=== PATIENT | female | born 1960 | race Caucasian/White ===

== ENCOUNTER → 2019-11-08 11:48 | Outpatient (CLI) | payer BC, SELFPAY ==
--- NOTE | ~2019-11-08 | US_ITS ---
EXAMINATION: US soft tissue head and neck EXAM DATE: 11/08/2019 12:22 INDICATION: Palpable abnormalities. TECHNIQUE: Multiple grayscale and Doppler images of the neck soft tissues were obtained (by a technol ogist who performed the scan) and subsequently reviewed. Correlation is made to thyroid ultrasound . FINDINGS: Scanning in the reported palpable abnormalities demonstrated symmetric homogeneous echogenicity subma ndibular glands bilaterally. There are multiple scattered internal jugular chain lymph nodes which ar e within normal size limits and have normal expected fatty rudy. Thyroid gland is also evaluated, has mildly heterogeneous echogenicity, right lobe measuring 5.4 x 1. 6 x 1.8 cm and the left 5.3 x 1.7 x 2.0 cm, mildly enlarged. There is a left thyroid lobe superficial nodule again identified, measuring 1.0 x 0.5 x 0.7 cm, unchanged. IMPRESSION: 1. Normal submandibular glands and normal sized internal jugular chain lymph nodes. 2. Mild thyromegaly. Stable left thyroid lobe nodule. Reviewed, dictated and finalized at location A. IMPRESSION: 1. Normal submandibular glands and normal sized internal jugular chain lymph n odes. 2. Mild thyromegaly. Stable left thyroid lobe nodule.
== END ==
PROVIDERS: PCP Family Medicine; Visit Provider Internal Medicine Endocrinology, Diabetes & Metabolism
DX: R59.0 Localized enlarged lymph nodes (principal)
CPT/HCPCS: 76536

== ENCOUNTER → 2019-11-11 10:56 | Outpatient (CLI) | payer BC, SELFPAY ==
--- NOTE | ~2019-11-11 | MR_ITS ---
EXAMINATION: MR brain/brain stem wo con DATE: 11/11/2019 11:40 INDICATION: Headache. TECHNIQUE: Magnetic resonance imaging (MRI) of the brain and brainstem was performed without intraven ous contrast. Sequences included sagittal and axial T1-weighted FSE, axial diffusion-weighted FS EPI, axial T2*-weighted GRE, axial T2-weighted FLAIR Propeller, and axial T2-weighted Propeller. Apparent diffusion coefficient (ADC) maps were created. COMPARISON: None. FINDINGS: There are scattered areas of nonspecific increased T2-weighted signal intensity in the cere bral white matter, which is within normal limits for the patient's age. There is no intracranial hemo rrhage, acute infarction, or abnormal intracranial mass lesion. The ventricles are normal in size. Th e orbits are normal. There is a mucous retention cyst in left maxillary sinus. The mastoid air cells are normal. IMPRESSION: 1. Normal aging brain. Reviewed, dictated and finalized at location A. IMPRESSION: 1. Normal aging brain.
== END ==
PROVIDERS: PCP Family Medicine; Visit Provider Internal Medicine Endocrinology, Diabetes & Metabolism
DX: R59.0 Localized enlarged lymph nodes (principal); R51 Headache
CPT/HCPCS: 70551

== ENCOUNTER → 2020-03-21 14:18 | Outpatient (CLI) | payer BC, SELFPAY ==
--- NOTE | ~2020-03-21 | XR_ITS ---
EXAMINATION: XR knee RT min 4V DATE: 03/21/2020 15:10 INDICATION: Right knee osteoarthritis. TECHNIQUE: 4 views of right knee were obtained. COMPARISON: Right knee radiographs 02/11/2016 FINDINGS: There is lateral subluxation of patella. No acute fracture. There is mild osteoarthritis of medial and lateral compartments and moderate osteoarthritis of patellofemoral compartment. There is chondrocalcinosis of the menisci. No knee joint effusion. IMPRESSION: 1. Moderate right knee osteoarthritis. Reviewed, dictated and finalized at location A. R SCHOOL PROGRAM COORDINATOR
--- NOTE | ~2020-03-21 | XR_ITS ---
EXAMINATION: HAND-CHIOMA ARTHRITIS 3+VIEWS DATE: 03/21/2020 15:10 INDICATION: Osteoarthritis with chronic anterior proximal hand pain and swelling TECHNIQUE: Posteroanterior, lateral, and oblique views of the left and of the right hands as well as a ballcatchers view of both hands were obtained. COMPARISON: Left hand radiographs dated 06/06/2018 FINDINGS: Bone alignment is normal at both hands. No fracture. Subtle chondrocalcinosis at the triangular fibro cartilage on both the left and right. Joint spaces are relatively preserved throughout both hands wit h no evident osteophytosis or erosions to suggest an inflammatory arthritis. IMPRESSION: 1. Chondrocalcinosis at the triangular fibrocartilage complex at both wrists. Otherwise unremarkable bilateral hand radiographs. Reviewed, dictated and finalized at location B. DEPARTMENT SUPERVISOR IMPRESSION: 1. Chondrocalcinosis at the triangular fibrocartilage complex at both wrists. O therwise unremarkable bilateral hand radiographs.
--- NOTE | ~2020-03-21 | XR_ITS ---
EXAMINATION: XR hip BI 2V w AP pelvis DATE: 03/21/2020 15:10 INDICATION: Osteoarthritis with pain extending across the lower back. TECHNIQUE: Anteroposterior view of the pelvis and anteroposterior and frog-leg lateral views of the l eft hip and anteroposterior and frog-leg lateral views of the right hip and were obtained. COMPARISON: CT dated 12/08/2017 FINDINGS: Bone alignment is normal. No fracture or suspected avascular necrosis. Mild bilateral hip osteoarthri tis. There is also mild bilateral sacroiliac osteoarthritis. Transitional S1 segment which is lumbari zed on the left. Surgical clip at the medial right lower quadrant which on prior CT appears to corres pond to change of a prior right nephrectomy. Osteitis pubis. IMPRESSION: 1. Osteitis pubis and mild bilateral hip and sacroiliac osteoarthritis. Reviewed, dictated and finalized at location B. CHECKER
--- NOTE | ~2020-03-21 | XR_ITS ---
EXAMINATION: XR knee LT min 4V DATE: 03/21/2020 15:10 INDICATION: Left knee osteoarthritis. TECHNIQUE: 4 views of left knee were obtained. COMPARISON: Left knee radiographs 09/23/2011 FINDINGS: There is lateral subluxation of patella. No fracture. There is mild osteoarthritis of media l and lateral compartments and moderate osteoarthritis of patellofemoral compartment. There is chondr ocalcinosis of the menisci. No knee joint effusion. IMPRESSION: 1. Moderate left knee osteoarthritis. Reviewed, dictated and finalized at location A. NG MACHINE REPAIRER
--- NOTE | ~2020-03-21 | XR_ITS ---
XR lumbar spine min 4V DATE: 03/21/2020 15:10 INDICATION: Back pain. TECHNIQUE: AP, lateral, coned lateral lumbosacral and bilateral oblique views COMPARISON: 10/02/2014 lumbar spine FINDINGS: Surgical clips are again noted overlying the right mid abdomen. There is diffuse osteopenia. There is a transitional first sacral vertebra with lumbarization on the right, sacralization on the r ight. Lumbar interspaces appear relatively preserved. There is mild degenerative spurring of the mid and lo wer lumbar spine. There is degenerative spurring of the lower thoracic spine. No fracture or bone destruction is evident. The included lower thoracic and lumbar pedicles are intac t. No spondylolysis. There is minimal retrolisthesis at L5-S1. The sacroiliac joints are unremarkable. IMPRESSION: Transitional lumbosacral vertebra Mild degenerative change of the lower thoracic and lumbar spine Diffuse osteopenia Reviewed, dictated and finalized at location A. AIN AIRLINE PILOT
== END ==
PROVIDERS: PCP Family Medicine; Visit Provider Internal Medicine
DX: M85.30 Osteitis condensans, unspecified site (principal); M16.0 Bilateral primary osteoarthritis of hip; M47.898 Other spondylosis, sacral and sacrococcygeal region; M47.817 Spondylosis without myelopathy or radiculopathy, lumbosacral region; M47.815 Spondylosis without myelopathy or radiculopathy, thoracolumbar region; M11.232 Other chondrocalcinosis, left wrist; M11.231 Other chondrocalcinosis, right wrist; M17.0 Bilateral primary osteoarthritis of knee; S83.001A Unspecified subluxation of right patella, initial encounter; S83.002A Unspecified subluxation of left patella, initial encounter
CPT/HCPCS: 72110; 73130; 73521; 73564

== ENCOUNTER → 2020-06-06 13:00 | Outpatient (CLI) | payer BC, SELFPAY ==
--- NOTE | ~2020-06-06 | MM_ITS ---
EXAMINATION: MM screening nik BI w kellie HISTORY: Screening TECHNIQUE: Craniocaudal and mediolateral oblique 3-D tomosynthesis images were obtained and synthetic 2-D images were generated. CAD analysis was submitted and interpreted. COMPARISON: Comparison to multiple prior studies sequentially, with oldest reviewed study dated 07/04. BREAST PARENCHYMAL COMPOSITION: The breasts are heterogenously dense, which may obscure small masses. FINDINGS: There is a developing mass in the subareolar location of the right breast on MLO view. Ther e is developing asymmetry in the upper outer quadrant of the left breast adjacent to a biopsy marker. IMPRESSION: 1. Developing bilateral breast abnormalities. 2. Additional mammographic views and possible breast ultrasound are recommended. BI-RADS Category 0: Incomplete: Needs additional imaging evaluation. Reviewed, dictated and finalized at location A. IMPRESSION: 1. Developing bilateral breast abnormalities. 2. Additional mammographic views and possible breast ultrasound are recommended . BI-RADS Category 0: Incomplete: Needs additional imaging evaluation.
== END ==
PROVIDERS: PCP Family Medicine; Visit Provider Family Medicine
DX: Z12.31 Encounter for screening mammogram for malignant neoplasm of breast (principal); R92.8 Other abnormal and inconclusive findings on diagnostic imaging of breast
CPT/HCPCS: 77063; 77067

== ENCOUNTER → 2020-07-05 14:00 | Outpatient (CLI) | payer BC, SELFPAY ==
--- NOTE | ~2020-07-05 | MMUS_ITS ---
EXAMINATION: MM diagnostic mammo BI, US breast BI limited HISTORY: Possible breast masses on screening mammogram TECHNIQUE: Additional 3-D tomosynthesis images of the breasts were performed and synthetic 2-D images were generated. CAD analysis was submitted and interpreted. High resolution limited bilateral breast ultrasound was performed. COMPARISON: 06/06/2020, 03/15/2018, 03/01/2018 FINDINGS: MAMMOGRAPHIC FINDINGS: Left breast: There is an approximately 2.5 cm obscured low density mass in the middle third of the ce ntral breast at the 12:00 location. No suspicious calcification or architectural distortion are ident ified. Right breast: There is a 10 mm obscured low density mass at the 12:00 location 3 cm from the nipple. Immediately posterior to this is a 6 mm oval, obscured, equal density mass 4 cm from the nipple. ULTRASOUND: Left breast: There are cysts at the 12:00 location corresponding to the mammographic finding in quest ion. Right breast: There is a 4 mm oval, circumscribed, parallel, hypoechoic mass at the 12:00 location 5 cm from the nipple. An adjacent cyst with internal septation is seen at the 12:00 location 3 cm from the nipple. IMPRESSION: 1. Simple cysts of the left breast and probably benign right breast mass. 2. Recommend 6 month follow-up right diagnostic mammogram and ultrasound. BI-RADS category 3, probably benign findings. Reviewed, dictated and finalized at location A. IMPRESSION: 1. Simple cysts of the left breast and probably benign right breast mass. 2. Recommend 6 month follow-up right diagnostic mammogram and ultrasound. BI-RADS category 3, probably benign findings.
== END ==
PROVIDERS: PCP Family Medicine; Visit Provider Family Medicine
DX: R92.8 Other abnormal and inconclusive findings on diagnostic imaging of breast (principal)
CPT/HCPCS: 76642; 77066

== ENCOUNTER → 2020-09-12 12:55 | Outpatient (CLI) | payer BC, SELFPAY ==
--- NOTE | ~2020-09-12 | US_ITS ---
EXAMINATION: US renal BI EXAM DATE: 09/12/2020 13:13 INDICATION: Left flank pain. TECHNIQUE: Multiple grayscale and Doppler images of the kidneys were obtained (by a technologist who performed the scan) and subsequently reviewed. There is no prior study for comparison. FINDINGS: Right kidney: Surgically resected. Unremarkable renal fossa. Left kidney: There is normal contour and echogenicity. It measures 12.8 x 4.8 x 5.2 centimeters. Th ere are no focal renal lesions identified. There is no hydronephrosis. Bladder is collapsed and not well evaluated. IMPRESSION: 1. Unremarkable left kidney. Reviewed, dictated and finalized at location A.
== END ==
PROVIDERS: Visit Provider Internal Medicine Endocrinology, Diabetes & Metabolism
DX: R10.9 Unspecified abdominal pain (principal)
CPT/HCPCS: 76775

== ENCOUNTER → 2021-03-21 08:42 | Outpatient (CLI) | payer BC, SELFPAY ==
--- NOTE | ~2021-03-21 | MMUS_ITS ---
EXAMINATION: MM diagnostic nik BI w kellie, US breast RT limited HISTORY: Follow-up for probably benign right breast mass TECHNIQUE: Craniocaudal, mediolateral, and mediolateral oblique 3-D tomosynthesis images of the breas ts were performed and synthetic 2-D images were generated. CAD analysis was submitted and interpreted . High resolution limited right breast ultrasound was performed. COMPARISON: 07/05/2020, 06/06/2020, 03/01/2018 BREAST PARENCHYMAL COMPOSITION: The breasts are heterogeneously dense, which may obscure small masses . FINDINGS: MAMMOGRAPHIC FINDINGS: Left breast: There is a stable obscured low density mass in the middle third of the breast. No new ma ss, suspicious calcification, or architectural distortion are identified. Right breast: There are two stable adjacent, obscured low density oval masses at the 12:00 location b reast 3 cm from the nipple which measure 7 mm an 11 mm. There has been no suspicious interval change. No new mass, suspicious calcification, or architectural distortion are identified. ULTRASOUND: A 4 mm mass previously described at the 12:00 location 5 cm from the nipple measures 7 mm but now has an appearance consistent with a cyst. A 10 mm cyst is noted at the 12:00 location 2.5 cm from the ni pple. Two adjacent cysts measuring up to 6 mm are present at the 12:00 location 3 cm from the nipple. IMPRESSION: 1. No mammographic or sonographic evidence of malignancy. 2. Recommend routine screening mammography in one year. BI-RADS Category 2: Benign finding(s). Reviewed, dictated and finalized at location A. BODIED TANKERMAN IMPRESSION: 1. No mammographic or sonographic evidence of malignancy. 2. Recommend routine screening mammography in one year. BI-RADS Category 2: Benign finding(s).
== END ==
PROVIDERS: PCP Family Medicine; Visit Provider Physician Assistant
DX: R92.8 Other abnormal and inconclusive findings on diagnostic imaging of breast (principal)
CPT/HCPCS: 76642; 77062; 77066; G0279

== ENCOUNTER → 2021-06-20 13:31 | Outpatient (CLI) | payer BC, SELFPAY ==
--- NOTE | ~2021-06-20 | US_ITS ---
US renal BI DATE: 06/20/2021 14:07 INDICATION: Elevated serum creatinine. History of right nephrectomy for congenital defect TECHNIQUE: Real-time imaging of left kidney, urinary bladder COMPARISON: 09/12/2020 renal ultrasound examination 12/08/[address] abdomen pelvis FINDINGS: No significant abnormality is detected in the right renal fossa. Left kidney measures 12.4 cm length. No left renal mass lesion or hydronephrosis. The urinary bladder is unremarkable. IMPRESSION: Status post right nephrectomy Unremarkable left kidney Reviewed, dictated and finalized at Location A. Reviewed, dictated and finalized at location A.
== END ==
PROVIDERS: PCP Family Medicine; Visit Provider Physician Assistant
DX: R79.89 Other specified abnormal findings of blood chemistry (principal); Z90.5 Acquired absence of kidney
CPT/HCPCS: 76775

== ENCOUNTER 2021-07-19 15:23 | Emergency (ER) | payer BC, SELFPAY ==
--- NOTE | ~2021-07-19 | XR_ITS ---
XR foot RT 2V 07/19/2021 16:14 Indication: Right foot pain Procedure: 2 views right foot Comparison: 01/11/2018 Findings: Osteopenia. Mild hallux valgus. Small degenerative calcaneal enthesophytes. Lisfranc joint intact. No acute fracture or traumatic malalignment. Mild soft tissue swelling overlying the metatars als. No foreign bodies. Impression: 1: No acute bone or joint abnormality. Reviewed, dictated and finalized at location A. Impression: 1: No acute bone or joint abnormality.
[2021-07-19 15:26] VITALS: BP 167/72; PULSE 80; RESP 100; TEMP 36.4; O2SAT 100
[2021-07-19 15:38] VITALS: BP 135/116; PULSE 79; RESP 22; O2SAT 98
[2021-07-19] MEDS: predniSONE 20 MG TABLET 40 MG PO (16:10)
[2021-07-19] MEDS: ACETAMINOPHEN 325 MG TABLET 650 MG PO (16:11)
[2021-07-19 16:25] VITALS: BP 134/92; PULSE 78; RESP 16; O2SAT 98
[2021-07-19 17:41] VITALS: BP 138/76; PULSE 77; RESP 18; O2SAT 98
[2021-07-19 17:50] LABS: Anion Gap 6 mmol/L (8-16); Blood Urea Nitrogen 15 mg/dL (7-17); Calcium 8.7 mg/dL (8.4-10.2); Carbon Dioxide 28 mmol/L (22-30); Chloride 107 mmol/L (98-107); Estimated Glomerular Filt Rate 42; Glucose 107 mg/dL (65-110); Sodium 141 mmol/L (137-145)
[2021-07-19] MEDS: KETOROLAC 30 MG/ML VIAL (*BKC) IM (18:29)
--- NOTE | 2021-07-19 18:35 | ED.EXTPRO ---
HPI - Extremity Problem General Chief complaint: Extremity Problem,Nontraumatic <RAY Camarena Last Filed: 07/19/21 20:29> Stated complaint: right foot pain <Maribell Charles PA-C - Last Filed: 07/19/21 20:29> Time Seen by Provider: 07/19/21 15:34 <RAY Camarena Last Filed: 07/19/21 20:29> History of Present Illness HPI Narrative: Patient is a 61-year-old female with a history of Christian's thyroiditis, arthritis, CKD, here for evaluation of atraumatic right foot pain x 2 days. Patient states that her pain developed while she was at rest, and since then has been severe in nature. Reports pain exacerbation with touching of the bed sheets and with ambulation. Denies relief after Excedrin Migraine. Patient reports some redness and swelling to her right foot. Denies fevers, chills, nausea, vomiting or other systemic symptoms. Denies break in skin or history of diabetes. Reports a similar sensation in her left foot about 2 years ago that resolved without intervention. States that she commonly receives IM Toradol for various arthralgias with good relief of her symptoms, and her history of CKD she is advised to drink lots of fluids afterwards. <RAY Camarena Last Filed: 07/19/21 20:29> Related Data Home medications: Home Medications Medication Instructions Recorded Confirmed triamcinolone acetonide 0.1 % 1 applic topical BID 03/01/20 06/11/21 topical cream propranolol 60 mg capsule,24 60 mg PO DAILY 09/27/20 06/11/21 hr,extended release methimazole 5 mg tablet 5 mg PO 2XW 11/12/20 06/11/21 cholecalciferol (vitamin D3) 1,250 1,250 mcg PO WEEKLY 06/11/21 06/11/21 mcg (50,000 unit) capsule mecobalamin (vitamin B12) 10,000 mcg subcut .once weekly 06/11/21 06/11/21 mcg solution for injection <RAY Camarena Last Filed: 07/19/21 20:29> Allergies/Adverse reactions: Allergies Allergy/AdvReac Type Severity Reaction Status Date / Time amoxicillin Allergy Unknown Rash Verified 06/11/21 08:38 azithromycin Allergy Unknown rash Verified 06/11/21 08:38 bupropion AdvReac Severe choking Verified 06/11/21 08:38 <Maribell Charles PA-C - Last Filed: 07/19/21 20:29> Review of Systems Review of Systems: Gen.: Denies fevers or chills Eyes: Denies eye pain or visual change ENT: Denies congestion Respiratory: Denies shortness of breath or cough CV: Denies chest pain or palpitations GI: Denies abdominal pain nausea, emesis or diarrhea denies burning, urgency, frequency or hematuria Musculoskeletal: Reports right foot pain. Neuro: Denies numbness, tingling, weakness or focal weakness Skin: Denies rash Except as documented, all other systems reviewed and negative <Maribell Charles PA-C - Last Filed: 07/19/21 20:29> [facility] Past Medical History Medical History: Medical History Autoimmune thyroiditis CKD (chronic kidney disease) Congenital hypoplasia of right kidney Graves disease Christian's disease HLD (hyperlipidemia) Hypothyroidism IBS (irritable bowel syndrome) Inflammatory arthritis Vitamin B12 deficiency Vitamin D deficiency <Maribell Charles PA-C - Last Filed: 07/19/21 20:29> Surgical History Surgical History: Surgical History H/O: hysterectomy History of nephrectomy <Maribell Charles PA-C - Last Filed: 07/19/21 20:29> Family History Family History: Family History Mother Diverticulitis Carcinoma of colon Other Cerebrovascular accident Diabetes mellitus Family history of arthritis Family history of heart disease in male family member before age 55 Family history of malignant neoplasm Family history of malignant neoplasm of breast in first degree relative Family history of malignant
[2021-07-19 18:56] VITALS: BP 142/78; PULSE 78; RESP 18; O2SAT 98
== END 2021-07-19 18:57 | disposition home or self-care (01) ==
PROVIDERS: Physician Assistant; Emergency Provider Emergency Medicine; PCP Family Medicine
DX: M10.9 Gout, unspecified (principal); N18.9 Chronic kidney disease, unspecified; E06.3 Autoimmune thyroiditis; E05.00 Thyrotoxicosis with diffuse goiter without thyrotoxic crisis or storm; K58.9 Irritable bowel syndrome, unspecified; E53.8 Deficiency of other specified B group vitamins; E55.9 Vitamin D deficiency, unspecified; Q60.3 Renal hypoplasia, unilateral; Z90.5 Acquired absence of kidney; Z87.891 Personal history of nicotine dependence
CPT/HCPCS: 36415; 73620; 80048; 96372; 99283; A9270; J1885; J7512

== ENCOUNTER 2021-08-06 16:27 | Emergency (ER) | payer BC, SELFPAY ==
[2021-08-06 16:43] VITALS: BP 152/76; PULSE 73; RESP 16; TEMP 36.7; O2SAT 98
--- NOTE | 2021-08-06 16:59 | ED.URI ---
HPI - URI/Sore Throat General Chief Complaint: Upper Respiratory Infection Stated Complaint: sore throat Time Seen by Provider: 08/06/21 16:59 Source: patient Mode of arrival: ambulatory Limitations: no limitations History of Present Illness HPI Narrative: 61-year-old female presented with known exposure to COVID. Patient endorses a mild sore throat that causes occasional cough, and runny nose. She states her friend who is in from out of town has been staying with her for the last 3 days, tested positive for COVID today. She denies shortness of breath, wheezing, nausea, vomiting, fevers or chills. She was boosted with [employer]quis [employer]quis vaccine in May 2021. Related Data Home Medications Medication Instructions Recorded Confirmed methimazole 5 mg tablet 5 mg PO 2XW 11/12/20 08/06/21 cholecalciferol (vitamin D3) 1,250 1,250 mcg PO WEEKLY 06/11/21 08/06/21 mcg (50,000 unit) capsule mecobalamin (vitamin B12) 10,000 10,000 mcg subcut .once weekly 06/11/21 08/06/21 mcg solution for injection propranolol 60 mg capsule,24 60 mg PO .every other day 07/31/21 08/06/21 hr,extended release insulin syringe-needle U-100 1 mL 08/06/21 08/06/21 31 gauge x 5/16 (BD Insulin Syringe Ultra-Fine) Allergies Allergy/AdvReac Type Severity Reaction Status Date / Time amoxicillin Allergy Unknown Rash Verified 08/06/21 16:35 azithromycin Allergy Unknown rash Verified 08/06/21 16:35 bupropion AdvReac Severe choking Verified 08/06/21 16:35 Review of Systems Review of Systems: CONSTITUTIONAL: Denies body aches, fever, chills, or sweats. EYES: Denies visual changes, redness, or discharge. ENT: reports rhinorrhea, congestion, sore throat CARDIOVASCULAR: Denies chest pain, palpitations, or edema. RESPIRATORY: Denies cough or dyspnea. GASTROINTESTINAL: Denies abdominal pain, nausea, vomiting, or diarrhea. MUSCULOSKELETAL: Denies back pain, joint pain, or myalgia. NEUROLOGIC: Denies headache, numbness, tingling, or weakness. All systems reviewed & are unremarkable except as noted in HPI and below PMFSH Past Medical History Medical History Autoimmune thyroiditis CKD (chronic kidney disease) Congenital hypoplasia of right kidney Graves disease Christian's disease HLD (hyperlipidemia) Hypothyroidism IBS (irritable bowel syndrome) Inflammatory arthritis Toe pain, right Vitamin B12 deficiency Vitamin D deficiency Surgical History Surgical History H/O: hysterectomy History of nephrectomy Family History Family History Mother Diverticulitis Carcinoma of colon Other Cerebrovascular accident Diabetes mellitus Family history of arthritis Family history of heart disease in male family member before age 55 Family history of malignant neoplasm Family history of malignant neoplasm of breast in first degree relative Family history of malignant neoplasm of uterus Social History Social History Second hand tobacco smoke exposure: No Smoking end date: 02/23/12 Alcohol intake: never Substance use: never Substance use type: does not use Gender identity (if verbalized by the patient): Female Comments At time of signature, I have reviewed and agree with nursing past medical, surgical, social and family history unless otherwise noted. Please see nursing chart for further information. There is no relevant family history pertinent to the presenting complaint Exam Narrative: GENERAL: Well-appearing EYES: EOMI. No redness or drainage. Conjunctivae normal. ENT: Mucous membranes pink and moist. No rhinorrhea. TMs normal bilaterally. Throat normal. Uvula midline. NECK: Normal AROM. Supple. No lymphadenopathy. CHEST: No respiratory distress. Clear to auscultation. HEART: Regular rate and r
== END 2021-08-06 17:18 | disposition home or self-care (01) ==
PROVIDERS: Emergency Provider Nurse Practitioner Family; PCP Family Medicine
DX: Z20.822 Contact with and (suspected) exposure to COVID-19 (principal); Z87.891 Personal history of nicotine dependence; E78.5 Hyperlipidemia, unspecified; M06.9 Rheumatoid arthritis, unspecified; E06.3 Autoimmune thyroiditis; Q60.3 Renal hypoplasia, unilateral; E05.00 Thyrotoxicosis with diffuse goiter without thyrotoxic crisis or storm; Z90.5 Acquired absence of kidney; E53.8 Deficiency of other specified B group vitamins; E55.9 Vitamin D deficiency, unspecified
CPT/HCPCS: 87426; 99213; C9803; G0463

== ENCOUNTER → 2022-01-27 16:00 | Outpatient (CLI) | payer BC, SELFPAY ==
--- NOTE | ~2022-01-27 | DEXA_ITS ---
Bone Density Report Name: STEVEN PIZARRO Age: 61 Sex: Female Ethnicity: White Date of : 1960 Indication: osteopenia; height loss; hysterectomy; postmenopausal Referring Provider: YODIT BRITTON Study: Bone densitometry was performed. Exam Date: January 27, 2022 Accession number: [id number] Bone Density: Region BMD T-score Z-score Classification AP Spine (L1-L4) 0.931 -1.1 0.4 Osteopenia Femoral Neck (Left) 0.833 -0.1 1.2 Normal Total Hip (Left) 0.933 -0.1 0.9 Normal Femoral Neck (Right) 0.801 -0.4 0.9 Normal Total Hip (Right) 0.865 -0.6 0.3 Normal Total Hip Mean 0.899 -0.4 0.6 Normal World Health Organization criteria for BMD impression classify patients as: Normal (T-score at or above -1.0), Osteopenia (T-score between -1.0 and -2.5), or Osteoporosis (T-score at or below -2.5). 10-year Fracture Risk(1): Major Osteoporotic Fracture 5.7% Hip Fracture 0.2% Reported Risk Factors: [place] (), Neck BMD=0.801, BMI=44.1 Input outside FRAX(R) limits. Adjusted to:Eytmny=999 kg (1) FRAX(R) Version 3.08. Fracture probability calculated for an untreated patient. Fracture probability may be lower if the patient has received treatment. Previous Exams: Region Exam Age BMD T-score BMD Change BMD Change Date g/cm2 vs Baseline vs Previous AP Spine(L1-L4) 01/27/2022 61 0.931 -1.1 0.025* 0.025* 02/06/2009 48 0.906 -1.3 Total Hip(Left) 01/27/2022 61 0.933 -0.1 -0.046* -0.046* 02/06/2009 48 0.979 0.3 Total Hip(Right) 01/27/2022 61 0.865 -0.6 -0.061* -0.061* 02/06/2009 48 0.926 -0.1 *Denotes significance at 95% confidence level, LSC for AP Spine = 0.022 g/cm2, LSC for Total Hip = 0.027 g/cm2 Clinical Information Provided by Patient: Has used the following medications: Vitamin D, Propanal Has the following medical conditions: Hysterectomy Patient maximum height was 68.0 Menopause Age: 26 No regular weight bearing exercise Onset of menses at age 13 Number of children 2 Impression: The patient has low bone mass, based on the Total Spine T-score. The patient has an estimated ten-year risk of hip fracture of 0.2% and an estimated ten-year risk of major fracture of 5.7%, based on the WHO FRAX algorithm. The BMD for the Total Hip(Left) decreased, changing by -0.046 since the last DXA exam. The BMD for the Total Hip(Right) decreased, changing by -0.061 since the last DXA exam.
== END ==
PROVIDERS: PCP Family Medicine; Visit Provider Family Medicine
DX: Z78.0 Asymptomatic menopausal state (principal); M85.88 Other specified disorders of bone density and structure, other site
CPT/HCPCS: 77080

== ENCOUNTER 2022-08-17 18:36 | Emergency (ER) | payer BC, SELFPAY ==
--- NOTE | ~2022-08-17 | XR_ITS ---
EXAM: XR foot LT min 3V DATE: 08/17/2022 19:34 HISTORY: Great toe pain. suspect gout . COMPARISON: None available. FINDINGS: Normal mineralization. No fracture or dislocation. No lytic or blastic lesion. Scattered m ild degenerative change. Moderate plantar enthesopathy. No erosion or periosteal change. Mild forefoo t soft tissue swelling. IMPRESSION: No acute osseous finding in the left foot. Reviewed, dictated and finalized at location K.
[2022-08-17 18:37] VITALS: BP 135/75; PULSE 88; RESP 18; TEMP 36.6; O2SAT 100
--- NOTE | 2022-08-17 19:47 | ED.GENADULT ---
HPI - General Adult General Chief complaint: Extremity Problem,Nontraumatic Stated complaint: gout to L big toe? Time Seen by Provider: 08/17/22 19:01 History of Present Illness HPI narrative: This is a 62-year-old female presenting with left great toe pain. Patient has a history of gout she has not had a recurrence in several years. Pain started this morning at 10:00 a.m.. There are no traumatic events. It is not red. She does not have fever chills nausea vomiting or diarrhea. Patient has no other complaints. She has not taken anything for pain control. She has 1 kidney and poor kidney function. Related Data Home Medications Medication Instructions Recorded Confirmed methimazole 5 mg tablet 5 mg PO 2XW 11/12/20 12/17/21 cholecalciferol (vitamin D3) 1,250 1,250 mcg PO WEEKLY 06/11/21 12/17/21 mcg (50,000 unit) capsule mecobalamin (vitamin B12) 10,000 10,000 mcg subcut .once weekly 06/11/21 12/17/21 mcg solution for injection propranolol 60 mg capsule,24 60 mg PO .every other day 07/31/21 12/17/21 hr,extended release insulin syringe-needle U-100 1 mL 08/06/21 12/17/21 31 gauge x 5/16 (BD Insulin Syringe Ultra-Fine) Allergies Allergy/AdvReac Type Severity Reaction Status Date / Time amoxicillin Allergy Unknown Rash Verified 08/17/22 18:51 bupropion AdvReac Severe choking Verified 08/17/22 18:51 PMFSH Past Medical History Medical History Autoimmune thyroiditis CKD (chronic kidney disease) Congenital hypoplasia of right kidney Gout attack Graves disease Christian's disease HLD (hyperlipidemia) Hypothyroidism IBS (irritable bowel syndrome) Inflammatory arthritis Toe pain, right Vitamin B12 deficiency Vitamin D deficiency Surgical History Surgical History H/O: hysterectomy History of nephrectomy Family History Family History Mother Diverticulitis Carcinoma of colon Other Cerebrovascular accident Diabetes mellitus Family history of arthritis Family history of heart disease in male family member before age 55 Family history of malignant neoplasm Family history of malignant neoplasm of breast in first degree relative Family history of malignant neoplasm of uterus Social History Social History Smoking status: Never smoker Second hand tobacco smoke exposure: No Smoking end date: 02/23/12 Alcohol intake: never Substance use: never Substance use type: does not use Lack of Transportation: No Lack of Food: Never True Current Housing: I Have Housing Concerned About Future Housing: Decline to Answer Difficulty Paying Gas/Electric Bills: Decline to Answer Difficulty Paying for Meds: Decline to Answer Currently Unemployed: Decline to Answer Education: Decline to Answer Difficulty w/ Childcare or Family Care: Decline to Answer Gender identity (if verbalized by the patient): Female Exam Narrative: APPEARANCE: No apparent distress. Head: atraumatic. EYES: EOMI, NOSE: Atraumatic NECK: Trachea midline RESPIRATORY: No increased rate of breathing CARDIOVASCULAR: RRR, ABDOMINAL: Non-distended MUSCULOSKELETAl: Focal exam of the left foot revealed tenderness to palpation along the great toe and at the toe. No significant erythema or warmth. NEURO: Alert. Moving 4/4 extremities SKIN:: Warm, dry. Normal color PSYCHIATRIC: Normal affect Course Vital Signs Vital signs: Vital Signs Temperature 97.8 F 08/17/22 18:37 Pulse Rate 88 08/17/22 18:37 Respiratory Rate 18 08/17/22 18:37 Blood Pressure 135/75 08/17/22 18:37 Pulse Oximetry 100 08/17/22 18:37 Oxygen Delivery Room Air 08/17/22 18:37 Temperature 97.8 F 08/17/22 18:37 Pulse Rate 88 08/17/22 18:37 Respiratory Rate 18 08/17/22 18:37 Blood Pressur
[2022-08-17] MEDS: predniSONE 40 MG, predniSONE 10 MG 50 MG PO (19:52)
[2022-08-17] MEDS: HYDROcodone/acetaminophen (*CRX) 5-325 MG TABLET 2 TAB PO (19:53)
== END 2022-08-17 20:12 | disposition home or self-care (01) ==
PROVIDERS: Emergency Provider Emergency Medicine; PCP Family Medicine
DX: M79.675 Pain in left toe(s) (principal); N18.9 Chronic kidney disease, unspecified; E03.9 Hypothyroidism, unspecified; E78.5 Hyperlipidemia, unspecified; Z79.4 Long term (current) use of insulin
CPT/HCPCS: 73630; 99283; A9270; J7512

== ENCOUNTER → 2023-01-18 09:17 | Outpatient (CLI) | payer BC, SELFPAY ==
--- NOTE | ~2023-01-18 | MMUS_ITS ---
EXAMINATION: MM diagnostic nik BI w kellie, US breast BI complete HISTORY: Left breast lump TECHNIQUE: ML, MLO and CC full field and spot 3-D tomosynthesis images of both breasts were performed and synthetic 2-D images were generated. CAD analysis was submitted and interpreted. High resolution complete bilateral breast ultrasound examination including all 4 quadrants and subareolar areas was performed. COMPARISON: 03/21/2021 diagnostic bilateral mammogram and limited right breast ultrasound 07/05/2020 bilateral diagnostic mammogram and Limited bilateral breast ultrasound 06/06/2020 bilateral screening mammogram BREAST PARENCHYMAL COMPOSITION: The breasts are heterogeneously dense, which may obscure small masses . FINDINGS: MAMMOGRAPHIC FINDINGS: 2 biopsy markers are noted on the left; history of 2 prior benign left breast biopsies. There bilateral circumscribed breast masses, measuring up to approximately 4 cm on the left, 12 mm on the right (lower inner quadrant). No architectural distortion is noted. Normal bilateral benign calcification. No skin thickening or re traction is noted. ULTRASOUND: No suspicious solid lesion or shadowing of either breast is detected. Right breast: 12:00 subareolar: 1.2 x 7 x 10 mm circumscribed sonolucency with through transmission posterior enhan cement, no internal vascularity, compatible with simple cyst Left breast: There are 2 cysts at 12:00 6 cm from the nipple, measuring up to 1.5 x 3.1 x 2.4 cm and 3.3 x 1.6 x 3 .3 cm. These are sonolucent, with through transmission posterior enhancement, 11:00 7 cm from nipple: 9 x 19 x 17 mm simple cyst with through transmission posterior enhancement an d 8 x 20 x 17 mm cyst 10-11:00 6 cm from nipple: Complex mixed solid and mostly cystic septated mass measuring 7.7 x 16 x 9 mm, with through transmission posterior enhancement, with through transmission and posterior enhance ment, no internal vascularity, consistent with simple cyst. 8:00 6 cm from nipple: Parallel circumscribed sonolucency measuring 7.7 x 17.5 x 20 mm, sonolucent, w ith through transmission, no internal vascularity, compatible with simple cyst IMPRESSION: 1. Benign findings 2. Routine annual mammographic screening is recommended BI-RADS Category 2: Benign finding(s). Reviewed, dictated and finalized at location A. E TOOLSETTER IMPRESSION: 1. Benign findings 2. Routine annual mammographic screening is recommended BI-RADS Category 2: Benign finding(s).
== END ==
PROVIDERS: PCP Family Medicine; Visit Provider Family Medicine
DX: R92.8 Other abnormal and inconclusive findings on diagnostic imaging of breast (principal); N63.20 Unspecified lump in the left breast, unspecified quadrant
CPT/HCPCS: 76641; 77062; 77066; G0279

== ENCOUNTER 2023-06-01 17:59 | Emergency (ER) | payer BC, SELFPAY ==
--- NOTE | ~2023-06-01 | XR_ITS ---
EXAMINATION: XR foot RT min 3V DATE: 06/01/2023 18:40 INDICATION: Right foot pain. TECHNIQUE: 4 views of right foot were obtained. COMPARISON: None. FINDINGS: Bone alignment is normal. No fracture. There is mild osteoarthritis of some of the interpha langeal joints. There are enthesophytes at the posterior and plantar aspects of calcaneal tuberosity. IMPRESSION: 1. Mild polyarticular osteoarthritis. Reviewed, dictated and finalized at location E.
[2023-06-01 18:03] VITALS: BP 151/82; PULSE 80; RESP 16; TEMP 36.5; O2SAT 100
[2023-06-01] MEDS: KETOROLAC 30 MG/ML VIAL (*BKC) 10 MG IM (19:35)
[2023-06-01 19:38] LABS: Uric Acid 8.9 mg/dL (2.5-7.5)
--- NOTE | 2023-06-01 21:46 | ED.EXTPRO ---
HPI - Extremity Problem General Chief complaint: Extremity Problem,Nontraumatic Stated complaint: Gout, right foot Time Seen by Provider: 06/01/23 19:17 History of Present Illness HPI Narrative: Patient presenting with pain to her right foot that feels exactly like when she had gout, she had tried taking when prednisone at home but she has no other medications. Also tried taking some Tylenol. No systemic symptoms. No trauma Related Data Home Medications Medication Instructions Recorded Confirmed methimazole 5 mg tablet 5 mg PO 2XW 11/12/20 03/08/23 cholecalciferol (vitamin D3) 1,250 1,250 mcg PO WEEKLY 06/11/21 03/08/23 mcg (50,000 unit) capsule mecobalamin (vitamin B12) 10,000 10,000 mcg subcut .once weekly 06/11/21 03/08/23 mcg solution for injection propranolol 60 mg capsule,24 60 mg PO .every other day 07/31/21 03/08/23 hr,extended release insulin syringe-needle U-100 1 mL 08/06/21 03/08/23 31 gauge x 5/16 (BD Insulin Syringe Ultra-Fine) Allergies Allergy/AdvReac Type Severity Reaction Status Date / Time amoxicillin Allergy Unknown Rash Verified 06/01/23 18:00 bupropion AdvReac Severe choking Verified 06/01/23 18:00 Review of Systems Review of Systems: CONST: No fever. HEENT: No sore throat C/V: No chest pain RESP: No cough GI: no abdominal pain or nausea or vomiting : No dysuria. M/S: right foot pain SKIN: No rash. NEURO: [No headache or focal numbness or weakness] PSYCH: [No depression] [facility] Past Medical History Medical History (Updated 06/01/23 @ 19:29 by Gladis Rodriguez MD) Autoimmune thyroiditis CKD (chronic kidney disease) Congenital hypoplasia of right kidney Gout attack Graves disease Christian's disease HLD (hyperlipidemia) Hypothyroidism IBS (irritable bowel syndrome) Inflammatory arthritis Migraine Toe pain, right Vitamin B12 deficiency Vitamin D deficiency Surgical History Surgical History H/O: hysterectomy History of nephrectomy Family History Family History Mother Diverticulitis Carcinoma of colon Other Cerebrovascular accident Diabetes mellitus Family history of arthritis Family history of heart disease in male family member before age 55 Family history of malignant neoplasm Family history of malignant neoplasm of breast in first degree relative Family history of malignant neoplasm of uterus Social History Social History Smoking status: Former smoker Second hand tobacco smoke exposure: No Smoking end date: 02/23/12 Alcohol intake: never Substance use: never Substance use type: does not use Lack of Transportation: No Lack of Food: Never True Current Housing: Decline to Answer Concerned About Future Housing: Decline to Answer Difficulty Paying Gas/Electric Bills: Decline to Answer Difficulty Paying for Meds: Decline to Answer Currently Unemployed: Decline to Answer Education: Decline to Answer Difficulty w/ Childcare or Family Care: Decline to Answer Living arrangements: with family Occupation/Education: retired Gender identity (if verbalized by the patient): Female Spiritual care concerns: No Agree to blood products: Yes Exam Narrative: EXAMINATION OF ORGAN SYSTEMS/BODY AREAS: Constitutional: Vital signs per nursing GENERAL:[No acute distress, non-toxic appearing.] HEAD: Normal with no signs of head trauma. EYES: EOMI, conjunctiva normal ENT: Hearing grossly intact LUNGS: Nonlabored breathing. HEART: [Regular rate and rhythm], normal DP pulse ABD: no distension EXT: pain with movement of the right foot but tolerating passive range of motion, small swelling over right foot SKIN: [No rashes or lesions.] NEURO: [Alert and oriented x 3. No gross focal sensory or strength deficits.] PSYCH: Normal affect Co
== END 2023-06-01 19:56 | disposition home or self-care (01) ==
LOC: ANHED 19:39
PROVIDERS: Emergency Provider Emergency Medicine; PCP Family Medicine
DX: M79.671 Pain in right foot (principal); E06.3 Autoimmune thyroiditis; N18.9 Chronic kidney disease, unspecified; E03.9 Hypothyroidism, unspecified
CPT/HCPCS: 36415; 73630; 84550; 96372; 99283; J1885

== ENCOUNTER 2023-06-17 17:11 | Emergency (ER) | payer BC, SELFPAY ==
--- NOTE | ~2023-06-17 | XR_ITS ---
EXAMINATION: XR foot LT min 3V DATE: 06/17/2023 20:22 INDICATION: Left foot pain. Gout. TECHNIQUE: 3 views of left foot were obtained. COMPARISON: Left foot radiograph 08/17/2022 FINDINGS: Bone alignment is normal. No fracture. There is mild osteoarthritis of some of the interpha langeal joints and midfoot joints. There is an enthesophyte at plantar aspect of calcaneal tuberosity . IMPRESSION: 1. Mild polyarticular osteoarthritis. Reviewed, dictated and finalized at location E.
[2023-06-17 17:17] VITALS: BP 152/77; PULSE 85; RESP 18; TEMP 36.6; O2SAT 100
--- NOTE | 2023-06-17 18:12 | PC.NURSE ---
Pt left foot edematous pedal pulse palp, capillary refill 3 seconds. Pt c/o pain joints of toes. States she thinks it is gout.
--- NOTE | 2023-06-17 19:20 | PC.NURSE ---
Assumed care of pt from RAQUEL Ron at this time.
--- NOTE | 2023-06-17 19:36 | PC.NURSE ---
Pt refusing xray at this time due to pain. This RN assisted pt onto bed from wheelchair. EDP Dr. Shafer made aware. Provider now at bedside.
--- NOTE | 2023-06-17 19:55 | ED.EXTPRO ---
HPI - Extremity Problem General Chief complaint: Extremity Problem,Nontraumatic Stated complaint: Gout left foot Time Seen by Provider: 06/17/23 19:13 History of Present Illness HPI Narrative: Patient is a 62-year-old female who presents to the emergency department this evening complaining of left foot pain. Patient states that earlier this month she had the same symptoms to her right foot and came to the emergency department and was provided a shot of Toradol and sent home on steroids for 5 days for gout flare up given her history of gout and elevated uric acid. Patient states that this helped her pain tremendously. Patient does have some left foot swelling and states that this happens with all of her gout flare ups. Patient is not currently on any suppressive medications for gout, stating that other than this episode and the episode earlier this month, patient has not had a flare-up for over a year and her PCP did not feel that she needs to be on any long-term medications. Patient admits that she does have history of chronic kidney disease and only has 1 kidney. Patient states that she understands the risks of NSAIDs in patients with kidney disease bed is requesting a Toradol shot at this time. She denies any recent falls, injuries to her left foot or any recent trauma. No additional concerns or symptoms at this time. Related Data Home Medications Medication Instructions Recorded Confirmed methimazole 5 mg tablet 5 mg PO 2XW 11/12/20 03/08/23 cholecalciferol (vitamin D3) 1,250 1,250 mcg PO WEEKLY 06/11/21 03/08/23 mcg (50,000 unit) capsule mecobalamin (vitamin B12) 10,000 10,000 mcg subcut .once weekly 06/11/21 03/08/23 mcg solution for injection propranolol 60 mg capsule,24 60 mg PO .every other day 07/31/21 03/08/23 hr,extended release insulin syringe-needle U-100 1 mL 08/06/21 03/08/23 31 gauge x 5/16 (BD Insulin Syringe Ultra-Fine) Allergies Allergy/AdvReac Type Severity Reaction Status Date / Time amoxicillin Allergy Unknown Rash Verified 06/17/23 17:12 bupropion AdvReac Severe choking Verified 06/17/23 17:12 Review of Systems Review of Systems: All systems are reviewed and are negative unless stated otherwise in the HPI. [facility] Past Medical History Medical History Autoimmune thyroiditis CKD (chronic kidney disease) Congenital hypoplasia of right kidney Gout attack Graves disease Christian's disease HLD (hyperlipidemia) Hypothyroidism IBS (irritable bowel syndrome) Inflammatory arthritis Migraine Toe pain, right Vitamin B12 deficiency Vitamin D deficiency Surgical History Surgical History H/O: hysterectomy History of nephrectomy Family History Family History Mother Diverticulitis Carcinoma of colon Other Cerebrovascular accident Diabetes mellitus Family history of arthritis Family history of heart disease in male family member before age 55 Family history of malignant neoplasm Family history of malignant neoplasm of breast in first degree relative Family history of malignant neoplasm of uterus Social History Social History Smoking status: Former smoker Second hand tobacco smoke exposure: No Smoking end date: 02/23/12 Alcohol intake: never Substance use: never Substance use type: does not use Lack of Transportation: No Lack of Food: Never True Current Housing: Decline to Answer Concerned About Future Housing: Decline to Answer Difficulty Paying Gas/Electric Bills: Decline to Answer Difficulty Paying for Meds: Decline to Answer Currently Unemployed: Decline to Answer Education: Decline to Answer Difficulty w/ Childcare or Family Care: Decline to Answer Living arrangements: with family Occupation/Education: retired G
[2023-06-17] MEDS: KETOROLAC 30 MG/ML VIAL (*BKC) 15 MG IM (20:01)
== END 2023-06-17 20:54 | disposition home or self-care (01) ==
PROVIDERS: Emergency Provider Emergency Medicine; PCP Family Medicine
DX: M10.9 Gout, unspecified (principal); N18.9 Chronic kidney disease, unspecified; E06.3 Autoimmune thyroiditis; E05.00 Thyrotoxicosis with diffuse goiter without thyrotoxic crisis or storm; E78.5 Hyperlipidemia, unspecified; E53.8 Deficiency of other specified B group vitamins; E55.9 Vitamin D deficiency, unspecified; K58.9 Irritable bowel syndrome, unspecified; Z90.710 Acquired absence of both cervix and uterus; Z90.5 Acquired absence of kidney; M19.072 Primary osteoarthritis, left ankle and foot
CPT/HCPCS: 73630; 96372; 99283; J1885

== ENCOUNTER 2024-03-05 10:45 | Emergency (ER) | payer BC, SELFPAY ==
[2024-03-05 10:57] VITALS: BP 150/75; PULSE 84; RESP 20; TEMP 36.3; O2SAT 100
--- NOTE | 2024-03-05 11:45 | PC.NURSE ---
pt rhona madrigal stated she was going to urgent care, advised to come back to ED if symptoms worsen
== END 2024-03-05 12:22 | disposition left against medical advice (07) ==
PROVIDERS: PCP Family Medicine
DX: M10.9 Gout, unspecified (principal)
CPT/HCPCS: 99199

== ENCOUNTER 2024-04-10 09:46 | Outpatient (CLI) | payer BC, SELFPAY ==
--- NOTE | ~2024-04-10 | MM_ITS ---
EXAMINATION: MM diagnostic nik BI w kellie HISTORY: Follow-up bilateral breast masses. TECHNIQUE: Additional 3-D tomosynthesis images of the breasts were performed and synthetic 2-D images were generated. CAD analysis was submitted and interpreted. COMPARISON: Comparison to multiple prior studies sequentially, with oldest reviewed study dated 09/2018. BREAST PARENCHYMAL COMPOSITION: Not dense: There are scattered areas of fibroglandular density. FINDINGS: There are bilateral breast masses in the periareolar locations which are stable compared wi 01/18/2023 when they were characterized as simple cyst by ultrasound. There are no new masses, nessa cifications or architectural distortion in either breast. IMPRESSION: 1. Stable benign bilateral breast masses. No new suspicious masses, calcifications or architectural d istortion to suggest malignancy. 2. Routine yearly screening mammogram and regular clinical breast examination are recommended. BI-RADS Category 2: Benign finding(s). Reviewed, dictated and finalized at location B. GER CHANGE IMPRESSION: 1. Stable benign bilateral breast masses. No new suspicious masses, calcificati ons or architectural distortion to suggest malignancy. 2. Routine yearly screening mammogram and regular clinical breast examination a re recommended. BI-RADS Category 2: Benign finding(s).
== END 2024-04-10 09:47 | disposition home or self-care (01) ==
LOC: MICIMG 09:47
PROVIDERS: PCP Family Medicine; Visit Provider Family Medicine
DX: N63.42 Unspecified lump in left breast, subareolar (principal); N63.41 Unspecified lump in right breast, subareolar
CPT/HCPCS: 77062; 77066; G0279

== ENCOUNTER 2024-04-14 08:08 | Emergency (ER) | payer BC, SELFPAY ==
--- NOTE | ~2024-04-14 | US_ITS ---
EXAMINATION:US venous doppler LE RT INDICATION:Leg pain and swelling TECHNIQUE: Multiple grayscale, color flow and Doppler images of the right lower extremity deep venous systems were obtained and reviewed. COMPARISON:No prior studies for comparison. FINDINGS: The common femoral, superficial femoral and popliteal veins demonstrate normal respiratory variation, augmentation and compressibility. Color flow is also seen within the posterior tibial, pe roneal, greater saphenous and profunda veins. IMPRESSION: 1: No lower extremity deep venous thrombosis. Reviewed, dictated and finalized at location L. HASING ANALYST
--- NOTE | ~2024-04-14 | XR_ITS ---
Right foot Technique: AP and lateral views were obtained. Clinical History: Swelling, redness Findings: No acute fracture or dislocation is seen. Osseous alignment is anatomic. Questionable early erosive change or lucency at the medial aspect of the base the first proximal phalanx.. Small planta r calcaneal spur present. Soft tissues are unremarkable. Impression: Questionable early erosive change versus osteopenia at the medial aspect of the base of the first pro ximal findings. Correlate for point tenderness in this region. Reviewed, dictated and finalized at location M. TER CAPTAIN Impression: Questionable early erosive change versus osteopenia at the medial aspect of the base of the first proximal findings. Correlate for point tenderness in this re gion.
[2024-04-14 08:07] VITALS: BP 148/56; PULSE 83; RESP 20; TEMP 36.8; O2SAT 100
--- NOTE | 2024-04-14 09:52 | ED_ITS ---
HPI - Extremity Problem General Chief complaint: Extremity Problem,Nontraumatic Stated complaint: Foot pain Time Seen by Provider: 04/14/24 09:05 Source: patient and old records reviewed Mode of arrival: ambulatory Limitations: no limitations History of Present Illness HPI Narrative: Patient is a 63-year-old female who presents the ED with report for right foot pain. Patient reports history of gout. States she has been dealing with a flare-up of gout in her right foot over the last few weeks. Was on a course of prednisone around 2 weeks ago which did improve symptoms. Reports having increased redness/pain/swelling to R foot/1st toe on Wednesday. Has been taking Tylenol for the pain. She was also prescribed tramadol by her PCP, but states this made her nauseous. Denies fevers, pain or swelling throughout the remainder of her leg. Denies hx of blood clots or DM. Does only have 1 kidney s/p R nephrectomy r/t congenital issues and typically avoids NSAIDs. Sees Dr. Diamond. Related Data Home Medications ?Medication ?Instructions ?Recorded ?Confirmed ?Last Taken ?Type mecobalamin (vitamin B12) 10,000 10,000 mcg subcut .once weekly 06/11/21 03/07/24 Unknown History mcg solution for injection insulin syringe-needle U-100 1 mL 08/06/21 03/07/24 Unknown History 31 gauge x 5/16 (BD Insulin Syringe Ultra-Fine) propranolol 60 mg tablet 60 mg PO WEEKLY 02/02/24 03/07/24 Unknown History Allergies Allergy/AdvReac Type Severity Reaction Status Date / Time amoxicillin Allergy Unknown Rash Verified 03/07/24 13:06 bupropion AdvReac Severe choking Verified 03/07/24 13:06 Review of Systems 2 Review of Systems: All systems reviewed & are unremarkable except as noted in HPI. All systems reviewed & are unremarkable except as noted in HPI and below PMFSH Past Medical History Medical History Migraine Gout attack Toe pain, right Autoimmune thyroiditis Christian's disease Graves disease Inflammatory arthritis IBS (irritable bowel syndrome) Congenital hypoplasia of right kidney Vitamin B12 deficiency Vitamin D deficiency HLD (hyperlipidemia) Hypothyroidism CKD (chronic kidney disease) Surgical History Surgical History H/O: hysterectomy History of nephrectomy Family History Family History Mother Diverticulitis Carcinoma of colon Other Cerebrovascular accident Diabetes mellitus Family history of arthritis Family history of heart disease in male family member before age 55 Family history of malignant neoplasm Family history of malignant neoplasm of breast in first degree relative Family history of malignant neoplasm of uterus Social History Social History Smoking status: Former smoker Second hand tobacco smoke exposure: No Smoking end date: 02/23/12 Alcohol intake: never Substance use: never Substance use type: does not use Do You Feel Safe in your Home?: Yes Lack of Transportation: No Lack of Food: Never True Current Housing: Decline to Answer Concerned About Future Housing: Decline to Answer Difficulty Paying Gas/Electric Bills: Decline to Answer Difficulty Paying for Meds: Decline to Answer Currently Unemployed: Decline to Answer Education: Decline to Answer Difficulty w/ Childcare or Family Care: Decline to Answer Living arrangements: with family Occupation/Education: retired Gender identity (if verbalized by the patient): Female Spiritual care concerns: No Agree to blood products: Yes Exam 2 Narrative: GENERAL: Well appearing, morbidly obese with BMI of 47.9, non-toxic, in no acute distress. HEAD: Normocephalic, atraumatic. RESPIRATORY: Airway patent, respirations nonlabored. Clear to auscultation bilaterally, no rales, rhonchi, wheezing. CARDIOVASCULAR: Regular rate and rhythm without murmurs, rubs, or gallops. Pedal pulses are strong and easily palpable MUSCULOSKELETAL: Moves all extremities. No gross deformities. Diffuse inflammation, erythema, warmth, swelling to right 1st MTP joint of foot with severe focal tenderness. Swelling extending into mid dorsal foot and anterior ankle. Mild swelling around the lateral malleoli without significant tenderness or erythema. No streaking erythema/lymphangitis. Sensation intact. No wounds. No drainage or bleeding. No bruising. No crepitus. SKIN: Warm, dry, normal color. NEURO: A&O X3. Speech clear. Steady gait. No ataxic movements. PSYCHIATRIC: Appropriate mood and affect. Normal interaction. Course Vital Signs Vital signs: Vital Signs Temperature 98.2 F 04/14/24 08:07 Pulse Rate 83 04/14/24 08:07 Respiratory Rate 20 04/14/24 08:07 Blood Pressure 148/56 H 04/14/24 08:07 Pulse Oximetry 100 04/14/24 08:07 Oxygen Delivery Room Air 04/14/24 08:07 Temperature 97.1 F L 04/14/24 11:51 Pulse Rate 86 04/14/24 11:51 Respiratory Rate 18 04/14/24 11:51 Blood Pressure 148/85 H 04/14/24 11:51 Pulse Oximetry 98 04/14/24 11:51 Oxygen Delivery Room Air 04/14/24 08:07 MDM - Extremity (Nontraumatic) MDM Narrative Medical decision making narrative: Patient presents to ED w/ several day hx of pain, swelling, redness to right 1st toe/foot. History of gout. States this feels similar to previous episodes. Has recently been on prednisone therapy for gout. Neurovascularly intact. Good peripheral pulses. Vital signs are stable. X-ray of right foot showing erosive changes vs osteopenia of 1st MTP. No fracture or acute osseous abnormalities. Venous Doppler ultrasound was also obtained and negative for DVT. Laboratory studies without leukocytosis. Inflammatory markers are elevated, though I am not suspicious for infectious etiology, cellulitis, septic arthritis at this time. Symptoms most consistent with gout. Feels similar to her previous episodes. Uric acid is elevated. Kidney function is stable on laboratory studies today, creatinine 1.1. Consistent with previous records. Will start patient back on steroids for treatment of acute gout. No history of diabetes. Tolerated steroids well previously. She has history of CKD with 1 kidney. Given small dose of Toradol in the ED, but will avoid frequent NSAIDS given her history. Feel patient is otherwise safe for discharge home at this time. Recommended close follow-up with PCP for further evaluation and to discuss potential maintenance therapy for gout given that she has had recurrent episodes recently. Will also refer to Podiatry and Orthopedics. Discussed strict return precautions. Patient voiced understanding. Offered crutches, however she declines. She does have a walker at home that she can use. Also discussed possible rehab treatment, however patient declined this. Patient in agreement with plan and feels comfortable going home. Discharged in stable condition. Vital signs stable at time of D/C. Differential Diagnosis Differential diagnosis: Likely gout, cellulitis, superficial thrombophlebitis, lower extremity edema and deep vein thrombosis of lower extremity Medical Records Attestation: I reviewed the patient's medical records. Lab Data Attestation: I reviewed the patient's lab results. 04/14/24 10:27 04/14/24 10:27 Labs: Lab Results 04/14/24 Range/Units 10:27 WBC 8.1 (4.5-10.0) K/mm3 RBC 4.58 (4.2-5.4) M/mm3 Hgb 12.3 (12.0-15.0) g/dL Hct 40.1 (37.0-47.0) % MCV 87.6 (80-100) fl MCH 26.9 (26-34) pg MCHC 30.7 L (32-36) g/dl RDW 14.9 H (11.5-14.5) % Plt Count 262 (150-375) k/mm3 MPV 10.2 (7.4-10.4) fl Immature Gran % (Auto) 0.5 (0-0.5) % Neut % (Auto) 66.6 (45.5-73.1) % Lymph % (Auto) 21.1 (18.3-44.2) % [place] % (Auto) 10.4 H (2.6-8.5) % Eos % (Auto) 0.9 (0-4.4) % Baso % (Auto) 0.5 (0.2-1.2) % Lymph # (Auto) 1.71 (0.9-3.2) K/mm3 [place] # (Auto) 0.8 H (0.1-0.6) K/mm3 Eos # (Auto) 0.1 (0-0.3) K/mm3 Baso # (Auto) 0.0 (0.0-0.1) K/mm3 Abs Immat Gran (auto) 0.04 H (0.00-0.031) K/mm3 Absolute Neuts (auto) 5.4 (1.3-6.7) K/mm3 Absolute Nucleated RBC 0.000 (0.0-0.012) K/mm3 Nucleated RBC % 0.0 (0.0-0.2) % ESR 62 H (0-20) mm/hr Sodium 142 (137-145) mmol/L Potassium 4.2 (3.4-5.0) mmol/L Chloride 107 (98-107) mmol/L Carbon Dioxide 28 (22-30) mmol/L Anion Gap 7 (4-12) mmol/L BUN 14 (7-17) mg/dL Creatinine 1.10 H (0.7-1.0) mg/dL Estim Creat Clear Calc 71 ml/min Estimated GFR 50 L (59 - ) Glucose 94 (65-110) mg/dL Uric Acid 9.1 H (2.5-7.5) mg/dL Calcium 8.8 (8.4-10.2) mg/dL C-Reactive Protein 8.1 H (<1.0) mg/dL Imaging Data Attestation: I personally reviewed and interpreted this imaging study as follows: Radiologist's impression: ITS Impressions Foot X-Ray 04/14/24 09:08 Impression: Questionable early erosive change versus osteopenia at the medial aspect of the base of the first proximal findings. Correlate for point tenderness in this region. ITS Impressions Foot X-Ray 04/14/24 09:08 Impression: Questionable early erosive change versus osteopenia at the medial aspect of the base of the first proximal findings. Correlate for point tenderness in this region. Venous Doppler Study 04/14/24 10:37 IMPRESSION: 1: No lower extremity deep venous thrombosis. Discharge Plan Discharge Clinical Impression: Pain in right ankle and joints of right foot Gout Qualifiers: Gout site: toe Gout etiology: unspecified cause Chronicity: acute Laterality: r ight Qualified Code(s): M10.9 - Gout, unspecified CKD (chronic kidney disease) Qualifiers: Chronic kidney disease stage: unspecified stage Qualified Code(s): N18.9 - Chronic kidney disease, unspecified Patient Disposition: Home, Self-Care Condition: Stable Instructions: Antibiotic Form, Low Purine Diet (ED), Gout (ED), Foot Sprain (ED) Additional Instructions: Take steroids as prescribed. Continue Tylenol as needed for pain. [place] as needed for more severe pain. Utilize zofran if needed for nausea with taking pain medications. Follow-up closely with your primary care doctor for further evaluation and continued gout management. Also recommend follow-up with podiatry/Orthopedics. Return to ED if you experience worsening or severe symptoms, severe pain or swelling in leg, persistent fevers, unable to keep down food or drink, or any other symptoms of concern. Patient Language: Kiswahili Prescriptions: New prednisone 20 mg tablet 40 mg PO DAILY 5 Days Qty: 10 0RF hydrocodone-acetaminophen 5-325 mg tablet 1 tablet PO Q6H PRN (Reason: pain) Qty: 5 0RF ondansetron 4 mg tablet,disintegrating 4 mg PO Q8H PRN (Reason: nausea and vomiting) Qty: 15 0RF No Action methylprednisolone [Medrol (Matt)] 4 mg tablets,dose pack See Rx Instructions PO .COMPLEX Qty: 21 0RF Rx Instructions: orally per package directions (DME) insulin syringe-needle U-100 [BD Insulin Syringe Ultra-Fine] 1 mL 31 gauge x 5/16 syringe MISCELLANEOUS mecobalamin (vitamin B12) 10,000 mcg recon soln 10,000 mcg subcut .once weekly dyzliswfti-flstwfsuryksl-pnno 50-300-40 mg capsule 1 cap PO Q8H PRN (Reason: headache) Qty: 20 0RF propranolol 60 mg tablet 60 mg PO WEEKLY cholecalciferol (vitamin D3) 1,250 mcg (50,000 unit) capsule 1,250 mcg PO WEEKLY Qty: 14 0RF Follow-up/Referrals: Adam Valerio MD [Physician] - (ORTHOPEDICS) Shahnaz Posada MD [Primary Care Provider] - Max Lundberg Jr., DPM [Physician] - (PODIATRY) Time of Disposition: 10:45
--- OUTSIDE RECORDS SUMMARY | 2024-04-14 09:58 | XMS_ITS | Clinical Summary ---
Author Organization [facility] Marilyn moscoso Address [address] [place] [id number] Phone Care Team Providers Care Room Clerk Name Role Phone Shahnaz Posada MD Primary Care Provider [phone] Allergies Active Allergy Reactions Criticality Noted Date Comments Amoxicillin Rash Low 10/08/2021 Bupropion High 03/24/2021 Medications Medication Sig Dispensed Refills Start Date End Date Status ergocalciferol (VITAMIN D2) 1.25 MG (54182 UT) capsule 08/04/2021 Active cyanocobalamin (VITAMIN B-12) 1000 MCG/ML injection cyanocobalamin (vitamin B-12) 1,000 mcg/mL solution 02/21/1969 Active insulin syringe-needle U-100 (BD Insulin Syringe U/F) 31G X 5/16 1 ML misc BD Insulin Syringe Ultra-Fine 1 mL 31 gauge x 5/16 syringe 02/21/1969 Active methIMAzole (TAPAZOLE) 5 MG tablet 10/02/2021 Active propranolol LA (INDERAL LA) 60 MG 24 hr capsule propranolol 60 mg capsule,extended release 24 hr 02/21/1969 Active ALPRAZolam (XANAX) 0.25 MG tablet Take 0.25 mg by mouth in the morning and 0.25 mg at noon and 0.25 mg in the evening. 12/17/2021 Active dexamethasone (DECADRON) 1 MG tablet dexamethasone 1 mg tablet TAKE 1 TABLET BY MOUTH AT BEDTIME FOR 1 DAY NEEDED Active DULoxetine (CYMBALTA) [address] capsule duloxetine 30 mg capsule,delayed release TAKE 1 CAPSULE BY MOUTH DAILY Active folic acid (FOLVITE) 400 MCG tablet folic acid 400 mcg tablet Active ondansetron (ZOFRAN) 8 MG tablet TAKE 1 TABLET BY MOUTH EVERY 8 HOURS NEEDED FOR NAUSEA OR VOMITING 12/17/2021 Active SUMAtriptan (IMITREX) 50 MG tablet sumatriptan 50 mg tablet Active triamcinolone (KENALOG) 0.1 % cream triamcinolone acetonide 0.1 % topical cream Active Active Problems Problem Noted Date Diagnosed Date Pain in limb 02/02/2022 Onychomycosis of toenails 11/17/2021 Porokeratosis 11/17/2021 Osteoporosis 10/08/2021 Loss of hair 07/22/2021 Vitamin B12 deficiency (non anemic) 07/22/2021 Essential (primary) hypertension 03/24/2021 Christian's thyroiditis 03/24/2021 Hyperlipidemia 03/18/2021 Hyperthyroidism 03/18/2021 Palpitations 03/18/2021 Vitamin D deficiency 03/18/2021 Weight loss 01/03/2019 Body mass index 40+ - severely obese 07/15/2015 Cyst of breast 07/08/2015 Immunizations Name Administration Dates Next Due Sars-cov-2, Unspecified 05/29/2020 Family History Medical History Relation Comments Breast cancer Brother Heart disease Father Colon cancer Mother Diverticulitis Mother Stroke Mother Relation Status Comments Brother Father Mother Paternal Grandmother Social History Tobacco Use Types Packs/Day Years Used Date Smoking Tobacco: Former Cigarettes Q uit: 2013 Smokeless Tobacco: Never Tobacco Cessation:Counseling Given: Not Answered Alcohol Use Standard Drinks/Week Comments Never 0 (1 standard drink = 0.6 oz pur e alcohol) Sex and Gender Information Value Date Recorded Sex Assigned at Not on file Gender Identity Not on file Sexual Orientation Not on file Last Filed Vital Signs Vital Sign Reading Time Taken Comments Blood Pressure 134/76 02/02/2022 2:35 PM PROGRAM CONSULTANT Pulse - - Temperature 36.1 C (96.9 F) 02/02/2022 2:35 PM PROGRAM CONSULTANT Respiratory Rate 18 02/02/2022 2:35 PM PROGRAM CONSULTANT Oxygen Saturation - - Inhaled Oxygen Concentration - - Weight 143 kg (315 lb) 02/02/2022 2:35 PM PROGRAM CONSULTANT Height 170.2 cm (5' 7 ) 02/02/2022 2:35 PM PROGRAM CONSULTANT Body Mass Index 49.34 02/02/2022 2:35 PM PROGRAM CONSULTANT Plan of Treatment Health Maintenance Due Date Last Done Comments Pneumococcal PPSV23 Highest Risk Adult (1 of 3 - PCV13 ) 1980 Influenza Vaccine (#1) 2023 Care Teams Room Clerk Relationship Specialty Start Date End Date Shahnaz Posada MD [address] [place] [address] PCP - General Internal Medicine 09/25/21
--- OUTSIDE RECORDS SUMMARY | 2024-04-14 09:58 | XMS_ITS | Clinical Summary ---
Author Organization [facility] Address [address] [place] [address] Phone Care Team Providers Care Television Engineer Name Role Phone Shahnaz Posada MD Primary Care Provider [phone] Allergies No known active allergies Medications VITAMIN D2 50,000 unit capsuleIndicatio ns:Breast cyst, unspecified laterality,Morbi d obesity with BMI of 40.0-44.9, adult ([facility]) 07/09/2015 Active HYDROcodone-acet aminophen (NORCO) 10-325 mg TabletIndication s:Breast cyst, unspecified laterality,Morbi d obesity with BMI of 40.0-44.9, adult ([facility]) Take 1 Tablet by mouth every 4 hours as needed for Pain, Moderate. Active Active Problems Patient Care Coordination No te Formatting of this note migh t be different from the original. Primary Care: Shahnaz Posada MD Referring Provider: Shahnaz Posada MD [address] [place] [address] Other: Problem Noted Date Diagnosed Date Morbid obesity with BMI of 40.0-44.9, adult 06/23 Breast cyst 07/08/2015 Osteoporosis Family History Medical History Relation Name Comments Breast Cancer Brother she Heart Disease Father Heart Disease Maternal Grandmother Uterine Cancer Maternal Grandmother Colon Cancer Mother Stroke Mother Uterine Cancer Other mggm Cancer Sister 1 timothy head tumor Uterine Cancer Sister 2 clayton Relation Name Status Comments Brother she Alive Father Maternal Grandmother Mother Alive Other mggm Sister 1 timothy Alive Sister 2 clayton Alive Social History Tobacco Use Types Packs/Day Years Used Date Smoking Tobacco: Former Cigarettes Q uit: 06/14/2013 Smokeless Tobacco: Never Alcohol Use Standard Drinks/Week Comments Yes 0 (1 standard drink = 0.6 oz pur e alcohol) very rarely Comments No Sex and Gender Information Value Date Recorded Sex Assigned at Not on file Legal 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 Gender Identity Not on file Sexual Orientation Not on file Occupation Industry Job Start Date Job End Date Not on file Not on file Not on file Not on file Last Filed Vital Signs Vital Sign Reading Time Taken Comments Blood Pressure 126/64 07/15/2015 11:10 AM CDT Pulse 80 07/15/2015 11:10 AM CDT Temperature - - Respiratory Rate - - Oxygen Saturation - - Inhaled Oxygen Concentration - - Weight 148.8 kg (328 lb) 07/15/2015 11:10 AM CDT Height 171.5 cm (5' 7.5 ) 07/15/2015 11:10 AM CD T Body Mass Index 50.61 07/15/2015 11:10 AM CDT Plan of Treatment Health Maintenance Due Date Last Done Comments Pre-Diabetes and Diabetes Screening 1961 DTAP/TDAP/TD VACCINES (1 - Tdap) 1980 CERVICAL CANCER SCREENING 06/29/1991 COLORECTAL SCREENING 2006 Colorectal Cancer Screening 2006 FIT-DNA Q 3 years 2006 FIT/FOBT Q 1 year 2006 Flex Sig/CT Colonography Q 5 years 2006 ZOSTER VACCINE (1 of 2) 06/29/2011 BREAST CANCER SCREENING 09/24/2012 09/25/19 12, 09/23/2011, 02/06/2009 RSV VACCINE (60+ or ) (1 - Risk 60-74 years 1-dose series) 2021 INFLUENZA VACCINE (#1) 2023 PNEUMOCOCCAL VACCINE 0-64 YEARS Aged Out No longer eligible b ased on patient's age to complete this topic Procedures Procedure Name Priority Date/Time Associated Diagnosis Comments MAMMO DIAGNOSTIC UNI LEFT W OR WO CAD Routine 09/25/2011 1:56 PM CDT Abnormal mammogram from Last 3 Months or Most Recently Relevant to Health Maintenance Results * MAMMO DIGITAL DIAG UNI LEFT (09/25/2011 1:56 PM CDT) Anatomical Region Laterality Modality Breast Left Mammography 09/25/2011 1:55 PM CDT Impressions 09/25/2011 4:25 PM CDT IMPRESSION: Technically successful vacuum assisted ultrasound guided core biopsy with tissue marker placement. Narrative 09/25/2011 4:25 PM CDT VACUUM ASSISTED ULTRASOUND-GUIDED CORE BIOPSY OF THE LEFT BREAST, TISSUE MARKER CLIP PLACEMENT, UNILATERAL DIGITAL MAMMOGRAM. Sep 25, 2011 01:13:00 PM INDICATION: Concerning abnormality on sonography TECHNIQUE/FINDINGS: The risks, potential benefits and alternatives of the procedure were discussed with the patient and written informed was obtained. The lesion of interest located in the abnormality within the left breast at the 1:00 to 2:00 position was localized using sonographic guidance. After sterile preparation of the skin overlying the lesion, less than 10 ml of lidocaine was utilized for local anesthesia and a small skin incision was made. A 10 gauge vacuum assisted core biopsy needle was then advanced through the lesion of interest using sonographic guidance. A total of 2 tissue cores were obtained throughout the lesion. A tissue marker clip was then placed at the biopsy site using sonographic guidance. Hemostasis was achieved. A sterile bandage, Dermabond and an ice pack were applied. A two-view left unilateral digital mammogram was obtained post-procedure and this demonstrates that the tissue marker clip is in the expected position. The patient tolerated the procedure well and there was no evidence of immediate complication. The patient was given verbal as well as written post-procedure instructions prior to the release from the department. The tissue cores were submitted to surgical pathology in formalin for histological analysis. Procedure Note Gustavo Faustin MD - 09/25/2011 VACUUM ASSISTED ULTRASOUND-GUIDED CORE BIOPSY OF THE LEFT BREAST, TISSUE MARKER CLIP PLACEMENT, UNILATERAL DIGITAL MAMMOGRAM. Sep 25, 2011 01:13:00 PM INDICATION: Concerning abnormality on sonography TECHNIQUE/FINDINGS: The risks, potential benefits and alternatives of the procedure were discussed with the patient and written informed was obtained. The lesion of interest located in the abnormality within the left breast at the 1:00 to 2:00 position was localized using sonographic guidance. After sterile preparation of the skin overlying the lesion, less than 10 ml of lidocaine was utilized for local anesthesia and a small skin incision was made. A 10 gauge vacuum assisted core biopsy needle was then advanced through the lesion of interest using sonographic guidance. A total of 2 tissue cores were obtained throughout the lesion. A tissue marker clip was then placed at the biopsy site using sonographic guidance. Hemostasis was achieved. A sterile bandage, Dermabond and an ice pack were applied. A two-view left unilateral digital mammogram was obtained post-procedure and this demonstrates that the tissue marker clip is in the expected position. The patient tolerated the procedure well and there was no evidence of immediate complication. The patient was given verbal as well as written post-procedure instructions prior to the release from the department. The tissue cores were submitted to surgical pathology in formalin for histological analysis. IMPRESSION IMPRESSION: Technically successful vacuum assisted ultrasound guided core biopsy with tissue marker placement. us Laura Crabtree MD MAMMO ORDERABLES Final Result from Last 3 Months or Most Recently Relevant to [place] [address] [facility] BLUE ACCESS/TRUE BLUE PPO Care Teams Television Engineer Relationship Specialty Start Date End Date Shahnaz Posada MD [address] [place] [address] PCP - General Family Practice 09/24/11
[2024-04-14 10:32] LABS: Basophils Percent Auto 0.5 % (0.2-1.2); Eosinophils Absolute Auto 0.1 K/mm3 (0-0.3); Eosinophils Percent Auto 0.9 % (0-4.4); Hematocrit 40.1 % (37.0-47.0); Hemoglobin 12.3 g/dL (12.0-15.0); Immature Granulocyte Absolute 0.04 K/mm3 (0.00-0.031); Immature Granulocyte Percent A 0.5 % (0-0.5); Lymphocytes Absolute Auto 1.71 K/mm3 (0.9-3.2); Lymphocytes Percent Auto 21.1 % (18.3-44.2); Mean Corpuscular HGB Conc 30.7 g/dl (32-36); Mean Corpuscular Hemoglobin 26.9 pg (26-34); Mean Corpuscular Volume 87.6 fl (80-100); Mean Platelet Volume 10.2 fl (7.4-10.4); Monocytes Absolute Auto 0.8 K/mm3 (0.1-0.6); Monocytes Percent Auto 10.4 % (2.6-8.5); Neutrophils Absolute Auto 5.4 K/mm3 (1.3-6.7); Neutrophils Percent Auto 66.6 % (45.5-73.1); Platelet Count Result 262 k/mm3 (150-375); Red Blood Count 4.58 M/mm3 (4.2-5.4); Red Cell Distribution Width 14.9 % (11.5-14.5); White Blood Count 8.1 K/mm3 (4.5-10.0)
[2024-04-14 10:46] LABS: Anion Gap 7 mmol/L (4-12); Blood Urea Nitrogen 14 mg/dL (7-17); CRP 8.1 mg/dL (<1.0); Calcium 8.8 mg/dL (8.4-10.2); Carbon Dioxide 28 mmol/L (22-30); Chloride 107 mmol/L (98-107); Estimated CRCL calculation 71 ml/min; Estimated Glomerular Filt Rate 50; Glucose 94 mg/dL (65-110); Potassium 4.2 mmol/L (3.4-5.0); Sodium 142 mmol/L (137-145); Uric Acid 9.1 mg/dL (2.5-7.5)
[2024-04-14 11:13] LABS: Erythrocyte Sedimentation Rate 62 mm/hr (0-20)
[2024-04-14] MEDS: HYDROcodone/acetaminophen (*CRX) 5-325 MG TABLET 1 TAB PO (11:35)
[2024-04-14] MEDS: KETOROLAC 30 MG/ML VIAL (*BKC) IM (11:36)
[2024-04-14 11:51] VITALS: BP 148/85; PULSE 86; RESP 18; TEMP 36.2; O2SAT 98
== END 2024-04-14 11:56 | disposition home or self-care (01) ==
PROVIDERS: Emergency Provider Physician Assistant; PCP Family Medicine
DX: M10.9 Gout, unspecified (principal); N18.9 Chronic kidney disease, unspecified; E06.3 Autoimmune thyroiditis; E78.5 Hyperlipidemia, unspecified; E53.8 Deficiency of other specified B group vitamins; E55.9 Vitamin D deficiency, unspecified; M19.90 Unspecified osteoarthritis, unspecified site; K58.9 Irritable bowel syndrome, unspecified; Z87.718 Personal history of other specified (corrected) congenital malformations of genitourinary system; Z87.891 Personal history of nicotine dependence; Z90.5 Acquired absence of kidney; Z90.710 Acquired absence of both cervix and uterus
CPT/HCPCS: 36415; 73620; 80048; 84550; 85025; 85652; 86140; 93971; 96372; 99284; A9270; J1885

== ENCOUNTER 2024-05-01 19:37 | Emergency (ER) | payer BC, SELFPAY ==
--- NOTE | ~2024-05-01 | XR_ITS ---
EXAM: XR knee LT 3V DATE: 05/01/2024 20:37 HISTORY: knee pain, hx gout . COMPARISON: 03/13/2020; 11/12/2022, images only. FINDINGS: Osteopenia. No fracture or dislocation. No lytic or blastic lesion. Tricompartmental osteo phytosis, moderate in the patellofemoral compartment. Chondrocalcinosis. Quadriceps enthesopathy. No erosion or periosteal change. Small volume left knee joint effusion. IMPRESSION: No acute osseous finding in the left knee. Reviewed, dictated and finalized at location K.
--- NOTE | ~2024-05-01 | XR_ITS ---
EXAM: XR knee RT 3V DATE: 05/01/2024 20:37 HISTORY: knee pain, hx gout . COMPARISON: 03/13/2020; 11/12/2022, images only. FINDINGS: Osteopenia. No fracture or dislocation. No lytic or blastic lesion. Tricompartmental osteo phytosis, moderate in the patellofemoral compartment. No erosion or periosteal change. Chondrocalcino sis. Moderate knee joint effusion. IMPRESSION: No acute osseous finding in the right knee. Reviewed, dictated and finalized at location K.
[2024-05-01 19:37] VITALS: BP 151/77; PULSE 103; RESP 20; TEMP 37.7; O2SAT 100
--- OUTSIDE RECORDS SUMMARY | 2024-05-01 20:07 | XMS_ITS | Clinical Summary ---
Author Organization [facility] Marilyn moscoso Address [address] [place] [id number] Phone Care Team Providers Care Foam Caster Name Role Phone Shahnaz Posada MD Primary Care Provider [phone] Allergies Active Allergy Reactions Criticality Noted Date Comments Amoxicillin Rash Low 10/08/2021 Bupropion High 03/24/2021 Medications Medication Sig Dispensed Refills Start Date End Date Status ergocalciferol (VITAMIN D2) 1.25 MG (15851 UT) capsule 08/04/2021 Active cyanocobalamin (VITAMIN B-12) [...] Comments Blood Pressure 134/76 02/02/2022 2:35 PM JAILER Pulse - - Temperature 36.1 C (96.9 F) 02/02/2022 2:35 PM JAILER Respiratory Rate 18 02/02/2022 2:35 PM JAILER Oxygen Saturation - - Inhaled Oxygen Concentration - - Weight 143 kg (315 lb) 02/02/2022 2:35 PM JAILER Height 170.2 cm (5' 7 ) 02/02/2022 2:35 PM JAILER Body Mass Index 49.34 02/02/2022 2:35 PM JAILER Plan of Treatment Health Maintenance Due Date Last Done Comments Pneumococcal PPSV23 Highest Risk Adult (1 of 3 - PCV13 ) 1979 Influenza Vaccine (#1) 2023 Care Teams Foam Caster Relationship Specialty Start Date End Date Shahnaz Posada MD [address] [place] [address] PCP - General Internal Medicine 09/25/21
--- OUTSIDE RECORDS SUMMARY | 2024-05-01 20:07 | XMS_ITS | Clinical Summary ---
Author [facility] Address [address] [place] [address] Phone Care Team Providers Care Lube Man Name Role Phone Shahnaz Posada MD Primary Care Provider [phone] Allergies No known active allergies Medications VITAMIN D2 50,000 unit capsuleIndicatio ns:Breast cyst, unspecified laterality,Morbi d obesity with BMI of 40.0-44.9, adult ([facility]) 07/09/2015 Active HYDROcodone-acet aminophen (NORCO) 10-325 mg TabletIndication s:Breast cyst, unspecified laterality,Morbi d obesity with BMI of 40.0-44.9, adult ([facility]) Take 1 Tablet by mouth every 4 hours as needed for Pain, Moderate. Active Active Problems Patient Care Coordination No te Formatting of this note migh t be different from the original. Primary Care: Shahnaz Posada MD Referring Provider: Shahnaz Posada MD [address] [place] [address] Other: Problem Noted Date Diagnosed Date Morbid [...] on file Legal Sex Female 6:10 AM [employer] Gender Identity Not on file Sexual Orientation [...] 2021 INFLUENZA VACCINE (#1) 2023 PNEUMOCOCCAL VACCINE 0-49 YEARS Aged Out No longer eligible b [...] Most Recently Relevant to Health [place] [address] [facility] BLUE ACCESS/TRUE BLUE PPO Care Teams Lube Man Relationship Specialty Start Date End Date Shahnaz Posada MD [address] [place] [address] PCP - General Family Practice 09/24/11
--- OUTSIDE RECORDS SUMMARY | 2024-05-01 20:07 | XMS_ITS | Data Portability ---
Author Organization [facility] [employer], Main Office Address [address] [place] [address] Care Team Providers Care Yacht Master Name Role Phone YODIT BRITTON Primary Care Provider Assessment No assessment recorded. Plan of Treatment Reminders Order Date Submit Date Provider Last Modified By Organization Details Last Modified Time Details Appointments None recorded. Lab None recorded. Referral None recorded. Procedures None recorded. Surgeries None recorded. Imaging None recorded. Medication Orders cyanocobala min (vit B-12) 1,000 mcg/mL injection solution 2022 023 [facility], [address] [place] [address], [address], 3 12:17:35 propranolol ER 60 mg capsule,24 hr,extended release 2022 023 [email or web address], [address] [place] [address], [address], 3 12:16:46 ergocalcife rol (vitamin D2) 1,250 mcg (50,000 unit) capsule 2022 023 [email or web address], [address] [place] [address], [address], 3 12:17:35 Patient TargetsNo targets recorded. Patient InstructionsNo instructions recorded. Reason for Referral None Reported. Results Created Date Observation Date Name Description Value Unit Range Abnormal Flag Note LastModifiedBy Organization Detail LastModifiedTime 07/03/19 22 07/09/2021 TSH+F REE T4 TSH 3.29 mIU/L 0.40-4 .50 normal Not Available [facility] [address] [place], [address], 07/09/2021 03:58:26 07/03/1907/09/2021 TSH+F REE T4 T4, free 1.4 NG/dL 0.8-1. 8 normal Not Available [facility] [address] [address] [place], [address], 07/09/2021 03:58:26 07/03/1907/09/2021 VITAM IN D,25- OH,TO HALINA,I A vitamin D,25-oh,tota l,ia 59 NG/mL 30-100 normal Vitam in D Statu s 25-OH Vitam in D: Defic iency : <20 ng/mL Insuf ficie ncy: 20 - 29 ng/mL Optim al: > or = 30 ng/mL For 25-OH Vitam in D testi ng on patie nts on D2-cruz pplem entat ion and patie nts for whom quant itati on of D2 and D3 fract ions is requi red, the [facility] Assur eD(TM ) 25-OH VIT D, (D2,D 3), LC/MS /MS is recom anastasia d: order code 03178 (preethi ents >2yrs ). See Note 1 Note 1 For addit ional infor isela coyne refer to http: //[facility] leilani Florez gnportia ics.c om/fa q/FAQ 199 (This link is being provi ded for infor kalli alvarado/ andre betancourt purpo ses only. ) Not Available [facility] [address] [place], [address], 07/09/2021 03:58:25 07/03/1907/09/2021 T3, FREE T3, free 2.7 pg/mL 2.3-4. 2 normal Not Available [facility] [address] [place], [address], 07/09/2021 03:58:25 07/03/19 22 07/09/2021 VITAM IN B12/F OLATE , SERUM PANEL vitamin B12 687 pg/mL 200-11 00 normal Not Available [address], [address], 07/09/2021 03:58:24 07/03/19 22 07/09/2021 VITAM IN B12/F OLATE , SERUM PANEL folate, serum 4.8 NG/mL low Refer ence Range Low: <3.4 Borde rline : 3.4-5 .4 Selina l: >5.4 Not Available [address], [address], 07/09/2021 03:58:24 07/03/19 22 07/09/2021 DHEA SULFA TE DHEA sulfate 58 mcg/d L 5-167 normal DHEA- S value s fall with advan cing age. For refer ence, the refer ence inter vals for 31-40 year old patie nts are: Male: 93-41 5 mcg/d L Femal e: 19-23 7 mcg/d L Not Available [address], [address], 07/09/2021 03:58:24 07/03/19 22 07/09/2021 THYRO ID PEROX IDASE ANTIB ODIES thyroid peroxidase antibodies 72 IU/mL <9 high Not Available [address], [address], 07/09/2021 03:58:23 07/03/1907/09/2021 TSI (THYR OID STIMU LATIN G IMMUN OGLOB ULIN) tsi <89 %_bas darinel <140 Thyro id stimu latin g immun oglob ulins (TSI) can engag e the TSH reception manager tors resul ting in hyper thyro idism in Grave s' disea se patie nts. TSI level s can be usefu l in monit oring the clini nessa outco me of Grave s' disea se as well as asses sing the poten tial for hyper thyro idism from mater nal-f etal trans jackie. TSI resul ts great er than or equal to (>=) 140% of the Refer ence Contr ol are consi dered posit marj. NOTE: A serum TSH level great er than 350 micro -Inte rnati onal Units /mL can inter fere with the TSI bioas say and potclarisa tiall y give false posit marj resul ts. Patie nts who are pregn ant and are suspe cted of havin g hyper thyro idism shoul d have both TSI and human Chori onic Gonad otrop in (hCG) tests measu red. A serum hCG level great er than 40,62 5 mIU/m L can inter fere with the TSI bioas say and may give false negat marj resul ts. In these patie nts it is recom anastasia d that a secon d TSI be obtai elias when the hCG dhara ntrat ion falls below 40,62 5 mIU/m L (usua lly after appro ximat shane 20-we eks gesta tion) . The haley tical perfo rmanc e rafiq cteri stics of this assay have been deter mined by [facility] . The modif icati ons have not been clear ed or appro jillian by the FDA. This assay has been valid ated pursu ant to the CLIA regul ation s and is used for clini nessa purpo ses. Not Available [facility] [address] [place], [address], 07/09/2021 03:58:23 07/03/1907/09/2021 COMPR EHENS MARJ METAB OLIC PANEL glucose 85 mg/dL 65-99 normal Fasti ng refer ence inter codie Not Available [facility] [address], [address], 07/09/2021 03:58:22 07/03/19 22 07/09/2021 COMPR EHENS MARJ METAB OLIC PANEL urea nitrogen (BUN) 23 mg/dL 7-25 normal Not Available [facility] [address], [address], 07/09/2021 03:58:22 07/03/19 22 07/09/2021 COMPR EHENS MARJ METAB OLIC PANEL creatinine 1.43 mg/dL 0.50-0 .99 high For patie nts >49 years of age, the refer ence limit for Creat inine is appro ximat shane 13% highe r for peopl e ident ified as Afric an-Am dom n. Not Available [address], [address], 07/09/2021 03:58:22 07/03/19 22 07/09/2021 COMPR EHENS MARJ METAB OLIC PANEL eGFR non-afr. danish 40 mL/mi n/1.7 3m2 > or = 60 low Not Available [address], [address], 07/09/2021 03:58:22 07/03/19 22 07/09/2021 COMPR EHENS MARJ METAB OLIC PANEL eGFR 46 mL/mi n/1.7 3m2 > or = 60 low Not Available [address], [address], 07/09/2021 03:58:22 07/03/19 22 07/09/2021 COMPR EHENS MARJ METAB OLIC PANEL BUN/creatini ne ratio 16 (calc ) 6-22 normal Not Available [address], [address], 07/09/2021 03:58:22 07/03/19 22 07/09/2021 COMPR EHENS MARJ METAB OLIC PANEL sodium 143 mmol/ L 135-14 6 normal Not Available [address], [address], 07/09/2021 03:58:22 07/03/19 22 07/09/2021 COMPR EHENS MARJ METAB OLIC PANEL potassium 4.3 mmol/ L 3.5-5. 3 normal Not Available [address], [address], 07/09/2021 03:58:22 07/03/19 22 07/09/2021 COMPR EHENS MARJ METAB OLIC PANEL chloride 106 mmol/ L 98-110 normal Not Available [address], [address], 07/09/2021 03:58:22 07/03/19 22 07/09/2021 COMPR EHENS MARJ METAB OLIC PANEL carbon dioxide 29 mmol/ L 20-32 normal Not Available [address], [address], 07/09/2021 03:58:22 07/03/19 22 07/09/2021 COMPR EHENS MARJ METAB OLIC PANEL calcium 9.4 mg/dL 8.6-10 .4 normal Not Available [address], [address], 07/09/2021 03:58:22 07/03/19 22 07/09/2021 COMPR EHENS MARJ METAB OLIC PANEL protein, total 7.6 g/dL 6.1-8. 1 normal Not Available [address], [address], 07/09/2021 03:58:22 07/03/19 22 07/09/2021 COMPR EHENS MARJ METAB OLIC PANEL albumin 4.2 g/dL 3.6-5. 1 normal Not Available [address], [address], 07/09/2021 03:58:22 07/03/19 22 07/09/2021 COMPR EHENS MARJ METAB OLIC PANEL globulin 3.4 g/dL_ (calc ) 1.9-3. 7 normal Not Available [address], [address], 07/09/2021 03:58:22 07/03/19 22 07/09/2021 COMPR EHENS MARJ METAB OLIC PANEL albumin/glob ulin ratio 1.2 (calc ) 1.0-2. 5 normal Not Available [address], [address], 07/09/2021 03:58:22 07/03/19 22 07/09/2021 COMPR EHENS MARJ METAB OLIC PANEL bilirubin, total 0.7 mg/dL 0.2-1. 2 normal Not Available [address], [address], 07/09/2021 03:58:22 07/03/19 22 07/09/2021 COMPR EHENS MARJ METAB OLIC PANEL alkaline phosphatase 73 U/L 37-153 normal Not Available [address], [address], 07/09/2021 03:58:22 07/03/19 22 07/09/2021 COMPR EHENS MARJ METAB OLIC PANEL AST 12 U/L 10-35 normal Not Available [address], [address], 07/09/2021 03:58:22 07/03/19 22 07/09/2021 COMPR EHENS MARJ METAB OLIC PANEL ALT 5 U/L 6-29 low Not Available [address], [address], 07/09/2021 03:58:22 07/03/19 22 07/09/2021 TESTO STERO NE, FREE, BIOAV AILAB LE AND TOTAL , MS albumin 4.4 g/dL 3.6-5. 1 Not Available [address], [address], 07/09/2021 03:58:22 07/03/19 22 07/09/2021 TESTO STERO NE, FREE, BIOAV AILAB LE AND TOTAL , MS sex hormone binding globulin 63.9 nmol/ L 14-73 Not Available [facility] [address] [address] [place], [address], 07/09/2021 03:58:22 07/03/19 22 07/09/2021 TESTO STERO NE, FREE, BIOAV AILAB LE AND TOTAL , MS testosterone , free 1.2 pg/mL 0.2-5. 0 Not Available [facility] [address] [address] [address] , [place], [address], 07/09/2021 03:58:22 07/03/1907/09/2021 TESTO STERO NE, FREE, BIOAV AILAB LE AND TOTAL , MS testosterone ,bioavailabl e 2.4 NG/dL 0.5-8. 5 Not Available [facility] [address] [address] [place], [address], 07/09/2021 03:58:22 07/03/19 22 07/09/2021 TESTO STERO NE, FREE, BIOAV AILAB LE AND TOTAL , MS testosterone , total, MS 17 NG/dL 2-45 For addit ional triciar isela coyne e refer to https ://ed ucati on.qu estdi [employer] TKO. Quick TV/f aq/FA Q165 (This link is being provi ded for infor kalli nal/e ducat ional purpo ses only. ) (Note ) This test was devel mumtaz and its haley tical perfo rmanc e rafiq cteri stics have been deter mined by [employer]. It has not been clear ed or appro jillian by the FDA. This assay has been valid ated pursu ant to the CLIA regul ation s and is used for clini nessa purpo ses. CORINA mace n [address] [facility] [address] [place] [address] [phone] Jairo paris MD Not Available [facility] [address] [address] [place], [address], 07/09/2021 03:58:22 07/03/19 22 07/09/2021 IRON, TIBC AND GEORGINA TIN PANEL iron, total 75 mcg/d L 45-160 normal Not Available [address], [address], 07/09/2021 03:58:21 07/03/19 22 07/09/2021 IRON, TIBC AND GEORGINA TIN PANEL iron binding capacity 308 mcg/d L_(ca lc) 250-45 0 normal Not Available [address], [address], 07/09/2021 03:58:21 07/03/19 22 07/09/2021 IRON, TIBC AND GEORGINA TIN PANEL % saturation 24 %_(ca lc) 16-45 normal Not Available [address], [address], 07/09/2021 03:58:21 07/03/19 22 07/09/2021 IRON, TIBC AND GEORGINA TIN PANEL ferritin 118 NG/mL 16-232 normal Not Available [address], [address], 07/09/2021 03:58:21 09/27/19 22 09/30/2021 TSH+F REE T4 TSH 2.64 mIU/L 0.40-4 .50 normal Not Available [address], [address], 09/30/2021 19:43:03 09/27/19 22 09/30/2021 TSH+F REE T4 T4, free 1.3 NG/dL 0.8-1. 8 normal Not Available [address], [address], 09/30/2021 19:43:03 09/27/19 22 09/30/2021 VITAM IN D,25- OH,TO HALINA,I A vitamin D,25-oh,tota l,ia 69 NG/mL 30-100 normal Vitam in D Statu s 25-OH Vitam in D: Defic iency : <20 ng/mL Insuf ficie ncy: 20 - 29 ng/mL Optim al: > or = 30 ng/mL For 25-OH Vitam in D testi ng on patie nts on D2-cruz pplem entat ion and patie nts for whom quant itati on of D2 and D3 fract ions is requi red, the [facility] Assur eD(TM ) 25-OH VIT D, (D2,D 3), LC/MS /MS is recom anastasia d: order code 64958 (preethi ents >2yrs ). See Note 1 Note 1 For addit ional infor isela coyne refer to http: //chip Florez [facility] ics.c om/fa q/FAQ 199 (This link is being provi ded for infor kalli alvarado/ andre betancourt purpo ses only. ) Not Available [facility] [address] [address] [place], [address], 09/30/2021 19:43:03 09/27/19 22 09/30/2021 T3, FREE T3, free 2.8 pg/mL 2.3-4. 2 normal Not Available [facility] [address] [address] [place], [address], 09/30/2021 19:43:03 09/27/19 22 09/30/2021 VITAM IN B12/F OLATE , SERUM PANEL vitamin B12 694 pg/mL 200-11 00 normal Not Available [facility] [address] [address] [place], [address], 09/30/2021 19:43:02 09/27/19 22 09/30/2021 VITAM IN B12/F OLATE , SERUM PANEL folate, serum 5.3 NG/mL low Refer ence Range Low: <3.4 Borde rline : 3.4-5 .4 Selina l: >5.4 Not Available [facility] [address] [address] [place], [address], 09/30/2021 19:43:02 09/27/19 22 09/30/2021 THYRO ID PEROX IDASE ANTIB ODIES thyroid peroxidase antibodies 46 IU/mL <9 high Not Available [facility] [address] [address], [place], [address], 09/30/2021 19:43:02 09/27/19 22 09/30/2021 TSI (THYR OID STIMU LATIN G IMMUN OGLOB ULIN) tsi 96 %_bas darinel <140 Thyro id stimu latin g immun oglob ulins (TSI) can engag e the TSH reception manager tors resul ting in hyper thyro idism in Grave s' disea se patie nts. TSI level s can be usefu l in monit oring the clini nessa outco me of Grave s' disea se as well as asses sing the poten tial for hyper thyro idism from mater nal-f etal trans jackie. TSI resul ts great er than or equal to (>=) 140% of the Refer ence Contr ol are consi dered posit marj. NOTE: A serum TSH level great er than 350 micro -Inte rnati onal Units /mL can inter fere with the TSI bioas say and potclarisa tiajohnny y give false posit marj resul ts. Patie nts who are pregn ant and are suspe cted of havin g hyper thyro idism shoul d have both TSI and human Chori onic Gonad otrop in (hCG) tests measu red. A serum hCG level great er than 40,62 5 mIU/m L can inter fere with the TSI bioas say and may give false negat marj resul ts. In these patie nts it is recom anastasia d that a secon d TSI be obtai elias when the hCG dhara ntrat ion falls below 40,62 5 mIU/m L (usua lly after appro ximat shane 20-we eks gesta tion) . The haley tical perfo rmanc e rafiq cteri stics of this assay have been deter mined by [facility] [employer] [employer] [employer] [facility] . The modif icati ons have not been clear ed or appro jillian by the FDA. This assay has been valid ated pursu ant to the CLIA regul ation s and is used for clini nessa purpo ses. Not Available [address] [address] [place], [address], 09/30/2021 19:43:01 09/27/19 22 09/30/2021 COMPR EHENS MARJ METAB OLIC PANEL glucose 75 mg/dL 65-99 normal Fasti ng refer ence inter codie Not Available [facility] [address] [address] [place], [address], 09/30/2021 19:43:01 09/27/19 22 09/30/2021 COMPR EHENS MARJ METAB OLIC PANEL urea nitrogen (BUN) 27 mg/dL 7-25 high Not Available [facility] [address], [address], 09/30/2021 19:43:01 09/27/19 22 09/30/2021 COMPR EHENS MARJ METAB OLIC PANEL creatinine 1.29 mg/dL 0.50-1 .05 high Not Available [facility] [address], [address], 09/30/2021 19:43:01 09/27/19 22 09/30/2021 COMPR EHENS MARJ METAB OLIC PANEL eGFR 48 mL/mi n/1.7 3m2 > or = 60 low The eGFR is based on the CKD-E PI 2020 equat ion. To calcu late the new eGFR from a previ ous Creat inine or Cysta tin C resul t, go to https ://janette tobin/enrique varma s/ kdoqi /gfr% 5Fcal culat or Not Available [facility] [address] [address] [place], [address], 09/30/2021 19:43:01 09/27/19 22 09/30/2021 COMPR EHENS MARJ METAB OLIC PANEL BUN/creatini ne ratio 21 (calc ) 6-22 normal Not Available [address], [address], 09/30/2021 19:43:01 09/27/19 22 09/30/2021 COMPR EHENS MARJ METAB OLIC PANEL sodium 142 mmol/ L 135-14 6 normal Not Available [address], [address], 09/30/2021 19:43:01 09/27/19 22 09/30/2021 COMPR EHENS MARJ METAB OLIC PANEL potassium 4.7 mmol/ L 3.5-5. 3 normal Not Available [address], [address], 09/30/2021 19:43:01 09/27/19 22 09/30/2021 COMPR EHENS MARJ METAB OLIC PANEL chloride 105 mmol/ L 98-110 normal Not Available [address], [address], 09/30/2021 19:43:01 09/27/19 22 09/30/2021 COMPR EHENS MARJ METAB OLIC PANEL carbon dioxide 27 mmol/ L 20-32 normal Not Available [address], [address], 09/30/2021 19:43:01 09/27/19 22 09/30/2021 COMPR EHENS MRAJ METAB OLIC PANEL calcium 9.5 mg/dL 8.6-10 .4 normal Not Available [address], [address], 09/30/2021 19:43:01 09/27/19 22 09/30/2021 COMPR EHENS MARJ METAB OLIC PANEL protein, total 7.4 g/dL 6.1-8. 1 normal Not Available [address], [address], 09/30/2021 19:43:01 09/27/19 22 09/30/2021 COMPR EHENS MARJ METAB OLIC PANEL albumin 4.3 g/dL 3.6-5. 1 normal Not Available [address], [address], 09/30/2021 19:43:01 09/27/19 22 09/30/2021 COMPR EHENS MARJ METAB OLIC PANEL globulin 3.1 g/dL_ (calc ) 1.9-3. 7 normal Not Available [address], [address], 09/30/2021 19:43:01 09/27/19 22 09/30/2021 COMPR EHENS MARJ METAB OLIC PANEL albumin/glob ulin ratio 1.4 (calc ) 1.0-2. 5 normal Not Available [address], [address], 09/30/2021 19:43:01 09/27/19 22 09/30/2021 COMPR EHENS MARJ METAB OLIC PANEL bilirubin, total 0.6 mg/dL 0.2-1. 2 normal Not Available [address], [address], 09/30/2021 19:43:01 09/27/19 22 09/30/2021 COMPR EHENS MARJ METAB OLIC PANEL alkaline phosphatase 61 U/L 37-153 normal Not Available [address], [address], 09/30/2021 19:43:01 09/27/19 22 09/30/2021 COMPR EHENS MARJ METAB OLIC PANEL AST 11 U/L 10-35 normal Not Available [address], [address], 09/30/2021 19:43:01 09/27/19 22 09/30/2021 COMPR EHENS MARJ METAB OLIC PANEL ALT 6 U/L 6-29 normal Not Available [address], [address], 09/30/2021 19:43:01 09/27/19 22 09/30/2021 SPECI MEN INTEG RITY COMPR OMISE D specimen integrity compromised Whole blood , unspu n or parti ally spun gel barri er tube was recei jillian more than 6 hours since colle ction . A false eleva tion of K, Phos and LD as well as a false decre ase in gluco se may occur due to prolo nged conta ct with red cells . Not Available [address], [address], 09/30/2021 19:43:00 12/05/19 22 12/11/2021 TSH+F REE T4 TSH 2.20 mIU/L 0.40-4 .50 normal Not Available [address], [address], 12/11/2021 19:39:09 12/05/19 22 12/11/2021 TSH+F REE T4 T4, free 1.2 NG/dL 0.8-1. 8 normal Not Available [address], [address], 12/11/2021 19:39:09 12/05/19 22 12/11/2021 THYRO ID PEROX IDASE ANTIB ODIES thyroid peroxidase antibodies 38 IU/mL <9 high Not Available [address], [address], 12/11/2021 19:39:09 12/05/1912/11/2021 TSI (THYR OID STIMU LATIN G IMMUN OGLOB ULIN) tsi <89 %_bas darinel <140 Thyro id stimu latin g immun oglob ulins (TSI) can engag e the TSH reception manager tors resul ting in hyper thyro idism in Grave s' disea se patie nts. TSI level s can be usefu l in monit oring the clini nessa outco me of Grave s' disea se as well as asses sing the poten tial for hyper thyro idism from mater nal-f etal trans jackie. TSI resul ts great er than or equal to (>=) 140% of the Refer ence Contr ol are consi dered posit marj. NOTE: A serum TSH level great er than 350 micro -Inte rnati onal Units /mL can inter fere with the TSI bioas say and poten tiall y give false posit marj resul ts. Patie nts who are pregn ant and are suspe cted of havin g hyper thyro idism shoul d have both TSI and human Chori onic Gonad otrop in (hCG) tests measu red. A serum hCG level great er than 40,62 5 mIU/m L can inter fere with the TSI bioas say and may give false negat marj resul ts. In these patie nts it is recom anastasia d that a secon d TSI be obtai elias when the hCG dhara ntrat ion falls below 40,62 5 mIU/m L (usua lly after appro ximat shane 20-we eks gesta tion) . The haley tical perfo rmanc e rafiq cteri stics of this assay have been deter mined by [facility] . The modif icati ons have not been clear ed or appro jillian by the FDA. This assay has been valid ated pursu ant to the CLIA regul ation s and is used for clini nessa purpo ses. Not Available [facility] [address] [place], [address], 12/11/2021 19:39:09 01/14/2001/20/2022 TSH+F REE T4 TSH 1.78 mIU/L 0.40-4 .50 normal Not Available [facility] [address] [place], [address], 01/20/2022 03:57:39 11/22/20 22 01/20/2022 TSH+F REE T4 T4, free 1.2 NG/dL 0.8-1. 8 normal Not Available [facility] [address] [address] [place], [address], 01/20/2022 03:57:39 01/14/20 22 01/20/2022 VITAM IN D,25- OH,TO HALINA,I A vitamin D,25-oh,tota l,ia 60 NG/mL 30-100 normal Vitam in D Statu s 25-OH Vitam in D: Defic iency : <20 ng/mL Insuf ficie ncy: 20 - 29 ng/mL Optim al: > or = 30 ng/mL For 25-OH Vitam in D testi ng on patie nts on D2-cruz pplem entat ion and patie nts for whom quant itati on of D2 and D3 fract ions is requi red, the [facility] Assur eD(TM ) 25-OH VIT D, (D2,D 3), LC/MS /MS is recom anastasia d: order code 49321 (preethi ents >2yrs ). See Note 1 Note 1 For addit ional infor isela coyne e refer to http: //chip [employer] ics.c om/fa q/FAQ 199 (This link is being provi ded for infor kalli alvarado/ andre betancourt purpo ses only. ) Not Available [facility] [address] [address] [place], [address], 01/20/2022 03:57:39 01/14/20 22 01/20/2022 T3, FREE T3, free 3.0 pg/mL 2.3-4. 2 normal Not Available [facility] [address] [address] [place], [address], 01/20/2022 03:57:38 01/14/20 22 01/20/2022 VITAM IN B12/F OLATE , SERUM PANEL vitamin B12 571 pg/mL 200-11 00 normal Not Available [facility] [address] [address] [place], [address], 01/20/2022 03:57:38 01/14/20 22 01/20/2022 VITAM IN B12/F OLATE , SERUM PANEL folate, serum 4.7 NG/mL low Refer ence Range Low: <3.4 Borde rline : 3.4-5 .4 Selina l: >5.4 Not Available [facility] [address] [place], [address], 01/20/2022 03:57:38 01/14/20 22 01/20/2022 THYRO ID PEROX IDASE ANTIB ODIES thyroid peroxidase antibodies 37 IU/mL <9 high Not Available [facility] [address] [place], [address], 01/20/2022 03:57:38 01/14/2001/20/2022 TSI (THYR OID STIMU LATIN G IMMUN OGLOB ULIN) tsi <89 %_bas darinel <140 Thyro id stimu latin g immun oglob ulins (TSI) can engag e the TSH reception manager tors resul ting in hyper thyro idism in [facility] dise se patie nts. TSI level s can be usefu l in monit oring the clini nessa outco me of [facility] s disea se as well as asses sing the poten tial for hyper thyro idism from mater nal-f etal trans jackie. TSI resul ts great er than or equal to (>=) 140% of the Refer ence Contr ol are consi dered posit marj. NOTE: A serum TSH level great er than 350 micro -Inte rnati onal Units /mL can inter fere with the TSI bioas say and poten tiall y give false posit marj resul ts. Patie nts who are pregn ant and are suspe cted of havin g hyper thyro idism yvonne d have both TSI and human Chori onic Gonad otrop in (hCG) tests measu red. A serum hCG level great er than 40,62 5 mIU/m L can inter fere with the TSI bioas say and may give false negat marj resul ts. In these patie nts it is recom anastasia d that a secon d TSI be obtai elias when the hCG dhara ntrat ion falls below 40,62 5 mIU/m L (usua lly after appro ximat shane 20-we eks gesta tion) . The haley tical perfo rmanc e rafiq cteri stics of this assay have been deter mined by [facility] Varghese Elii darioe Keith guaman . The modif icati ons have not been clear ed or appro jillian by the FDA. This assay has been valid ated pursu ant to the CLIA regul ation s and is used for clini nessa purpo ses. Not Available [employer] [address] [address] [place], [address], 01/20/2022 03:57:37 01/14/2001/20/2022 COMPR EHENS MARJ METAB OLIC PANEL glucose 82 mg/dL 65-99 normal Fasti ng refer ence inter codie Not Available [employer] [address] [address] [place], [address], 01/20/2022 03:57:37 01/14/20 22 01/20/2022 COMPR EHENS MARJ METAB OLIC PANEL urea nitrogen (BUN) 18 mg/dL 7-25 normal Not Available [employer] [address] [address] [place], [address], 01/20/2022 03:57:37 01/14/20 22 01/20/2022 COMPR EHENS MARJ METAB OLIC PANEL creatinine 1.19 mg/dL 0.50-1 .05 high Not Available [employer] [address] [place] [address] [place], [address], 01/20/2022 03:57:37 01/14/2001/20/2022 COMPR EHENS MARJ METAB OLIC PANEL eGFR 52 mL/mi n/1.7 3m2 > or = 60 low The eGFR is based on the CKD-E PI 2020 equat ion. To calcu late the new eGFR from a previ ous Creat inine or Cysta katie C resul t, go to https ://janette cuba.shayy tobin/enrique jeffess ional s/ kdoqi /gfr% 5Fcal culat or Not Available [address], [address], 01/20/2022 03:57:37 01/14/20 22 01/20/2022 COMPR EHENS MARJ METAB OLIC PANEL BUN/creatini ne ratio 15 (calc ) 6-22 normal Not Available [address], [address], 01/20/2022 03:57:37 01/14/20 22 01/20/2022 COMPR EHENS MARJ METAB OLIC PANEL sodium 144 mmol/ L 135-14 6 normal Not Available [address], [address], 01/20/2022 03:57:37 01/14/20 22 01/20/2022 COMPR EHENS MARJ METAB OLIC PANEL potassium 4.4 mmol/ L 3.5-5. 3 normal Not Available [address], [address], 01/20/2022 03:57:37 01/14/20 22 01/20/2022 COMPR EHENS MARJ METAB OLIC PANEL chloride 107 mmol/ L 98-110 normal Not Available [address], [address], 01/20/2022 03:57:37 01/14/20 22 01/20/2022 COMPR EHENS MARJ METAB OLIC PANEL carbon dioxide 30 mmol/ L 20-32 normal Not Available [address], [address], 01/20/2022 03:57:37 01/14/20 22 01/20/2022 COMPR EHENS MARJ METAB OLIC PANEL calcium 9.6 mg/dL 8.6-10 .4 normal Not Available [address], [address], 01/20/2022 03:57:37 01/14/20 22 01/20/2022 COMPR EHENS MARJ METAB OLIC PANEL protein, total 7.0 g/dL 6.1-8. 1 normal Not Available [address], [address], 01/20/2022 03:57:37 01/14/20 22 01/20/2022 COMPR EHENS MARJ METAB OLIC PANEL albumin 3.9 g/dL 3.6-5. 1 normal Not Available [address], [address], 01/20/2022 03:57:37 01/14/20 22 01/20/2022 COMPR EHENS MARJ METAB OLIC PANEL globulin 3.1 g/dL_ (calc ) 1.9-3. 7 normal Not Available [address], [address], 01/20/2022 03:57:37 01/14/20 22 01/20/2022 COMPR EHENS MARJ METAB OLIC PANEL albumin/glob ulin ratio 1.3 (calc ) 1.0-2. 5 normal Not Available [address], [address], 01/20/2022 03:57:37 01/14/20 22 01/20/2022 COMPR EHENS MARJ METAB OLIC PANEL bilirubin, total 0.6 mg/dL 0.2-1. 2 normal Not Available [address] [address] [place], [address], 01/20/2022 03:57:37 01/14/20 22 01/20/2022 COMPR EHENS MARJ METAB OLIC PANEL alkaline phosphatase 68 U/L 37-153 normal Not Available [address] [address] [place], [address], 01/20/2022 03:57:37 01/14/20 22 01/20/2022 COMPR EHENS MARJ METAB OLIC PANEL AST 11 U/L 10-35 normal Not Available [address], [address], 01/20/2022 03:57:37 01/14/20 22 01/20/2022 COMPR EHENS MARJ METAB OLIC PANEL ALT 7 U/L 6-29 normal Not Available [address], [address], 01/20/2022 03:57:37 10/15/19 23 10/16/2022 COMPR EHENS MARJ METAB OLIC PANEL glucose 86 mg/dL 65-99 normal Fasti ng refer ence inter codie Not Available [address], [address], 10/16/2022 11:28:49 10/15/19 23 10/16/2022 COMPR EHENS MARJ METAB OLIC PANEL urea nitrogen (BUN) 23 mg/dL 7-25 normal Not Available [address], [address], 10/16/2022 11:28:49 10/15/19 23 10/16/2022 COMPR EHENS MARJ METAB OLIC PANEL creatinine 1.15 mg/dL 0.50-1 .05 high Not Available [address], [address], 10/16/2022 11:28:49 10/15/19 23 10/16/2022 COMPR EHENS MARJ METAB OLIC PANEL eGFR 54 mL/mi n/1.7 3m2 > or = 60 low Not Available [address], [address], 10/16/2022 11:28:49 10/15/19 23 10/16/2022 COMPR EHENS MARJ METAB OLIC PANEL BUN/creatini ne ratio 20 (calc ) 6-22 normal Not Available [address], [address], 10/16/2022 11:28:49 10/15/1910/16/2022 COMPR EHENS MARJ METAB OLIC PANEL sodium 142 mmol/ L 135-14 6 normal Not Available [address], [address], 10/16/2022 11:28:49 10/15/1910/16/2022 COMPR EHENS MARJ METAB OLIC PANEL potassium 4.1 mmol/ L 3.5-5. 3 normal Not Available [address], [address], 10/16/2022 11:28:49 10/15/1910/16/2022 COMPR EHENS MARJ METAB OLIC PANEL chloride 106 mmol/ L 98-110 normal Not Available [address], [address], 10/16/2022 11:28:49 10/15/1910/16/2022 COMPR EHENS MARJ METAB OLIC PANEL carbon dioxide 30 mmol/ L 20-32 normal Not Available [address], [address], 10/16/2022 11:28:49 10/15/1910/16/2022 COMPR EHENS MARJ METAB OLIC PANEL calcium 9.6 mg/dL 8.6-10 .4 normal Not Available [address], [address], 10/16/2022 11:28:49 10/15/1910/16/2022 COMPR EHENS MARJ METAB OLIC PANEL protein, total 7.0 g/dL 6.1-8. 1 normal Not Available [address], [address], 10/16/2022 11:28:49 10/15/1910/16/2022 COMPR EHENS MARJ METAB OLIC PANEL albumin 4.1 g/dL 3.6-5. 1 normal Not Available [address], [address], 10/16/2022 11:28:49 10/15/19 23 10/16/2022 COMPR EHENS MARJ METAB OLIC PANEL globulin 2.9 g/dL_ (calc ) 1.9-3. 7 normal Not Available [address], [address], 10/16/2022 11:28:49 10/15/1910/16/2022 COMPR EHENS MARJ METAB OLIC PANEL albumin/glob ulin ratio 1.4 (calc ) 1.0-2. 5 normal Not Available [address], [address], 10/16/2022 11:28:49 10/15/19 23 10/16/2022 COMPR EHENS MARJ METAB OLIC PANEL bilirubin, total 0.6 mg/dL 0.2-1. 2 normal Not Available [address], [address], 10/16/2022 11:28:49 10/15/19 23 10/16/2022 COMPR EHENS MARJ METAB OLIC PANEL alkaline phosphatase 63 U/L 37-153 normal Not Available [address], [address], 10/16/2022 11:28:49 10/15/19 23 10/16/2022 COMPR EHENS MARJ METAB OLIC PANEL AST 11 U/L 10-35 normal Not Available [address], [address], 10/16/2022 11:28:49 10/15/19 23 10/16/2022 COMPR EHENS MARJ METAB OLIC PANEL ALT 7 U/L 6-29 normal Not Available [address], [place], [address], 10/16/2022 11:28:49 10/15/1910/16/2022 THYRO ID PEROX IDASE ANTIB ODIES thyroid peroxidase antibodies 58 IU/mL <9 high Not Available [address], [address], 10/16/2022 11:28:50 10/15/1910/16/2022 VITAM IN B12/F OLATE , SERUM PANEL vitamin B12 440 pg/mL 200-11 00 normal Not Available [facility] [address], [address], 10/16/2022 11:28:50 10/15/1910/16/2022 VITAM IN B12/F OLATE , SERUM PANEL folate, serum 5.2 NG/mL low Refer ence Range Low: <3.4 Borde rline : 3.4-5 .4 Selina l: >5.4 Not Available [address], [address], 10/16/2022 11:28:50 10/15/1910/16/2022 T3, FREE T3, free 3.0 pg/mL 2.3-4. 2 normal Not Available [address], [address], 10/16/2022 11:28:51 10/15/1910/16/2022 VITAM IN D,25- OH,TO HALINA,I A vitamin D,25-oh,tota l,ia 68 NG/mL 30-100 normal Vitam in D Statu s 25-OH Vitam in D: Defic iency : <20 ng/mL Insuf ficie ncy: 20 - 29 ng/mL Optim al: > or = 30 ng/mL For 25-OH Vitam in D testi ng on patie nts on D2-cruz pplem entat ion and patie nts for whom quant itati on of D2 and D3 fract ions is requi red, the [employer] Assur eD(TM ) 25-OH VIT D, (D2,D 3), LC/MS /MS is recom anastasia d: order code 20418 (preethi ents >2yrs ). See Note 1 Note 1 For addit ional infor isela coyne refer to http: //chip Phelps stDia gnost ics.c om/fa q/FAQ 199 (This link is being provi ded for infor kalli alvarado/ educscooby betancourt purpo ses only. ) Not Available [address] [address] [place], [address], 10/16/2022 11:28:51 10/15/1910/16/2022 TSH+F REE T4 TSH 3.08 mIU/L 0.40-4 .50 normal Not Available [place] [address] [address] [place], [address], 10/16/2022 11:28:52 10/15/1910/16/2022 TSH+F REE T4 T4, free 1.2 NG/dL 0.8-1. 8 normal Not Available [facility] [address], [address], 10/16/2022 11:28:52 Result Notes None recorded. Problems Name Problem SNOMED Code Status Onset Date Resolution Date Notes Provider Name and Address Organization Details Recorded Time Christian thyroiditi s 61219188 Active 2022 Sonali Jones, LUIS null, [place] - [facility] 3 09:02:59 Loss of hair 135702965 Active 2021 Not Available [facility] 3 04:44:57 Hyperthyro idism 59583342 Active 2018 Not Available [facility] 3 04:44:57 Vitamin D deficiency 34466187 Active 2021 Not Available [facility] 3 04:44:57 Porokerato sis 379266324 Active 2021 Not Available [facility] 3 04:44:57 Onychomyco sis of toenails 744165163 Active 2021 Not Available [facility] 3 04:44:57 Vitamin B12 deficiency (non anemic) 06119587 Active 2021 Not Available [facility] 3 04:44:57 Autoimmune thyroiditi s 38391255 Active 2021 Not Available [facility] 3 04:44:57 Palpitatio ns 92352243 Active 2021 Not Available [facility] 3 04:44:57 Weight loss 23467353 Active 2018 Not Available [facility] 3 04:44:57 Pain in limb 39247651 Completed Not Available [facility] 3 04:44:57 Problem Notes None recorded. Procedures Surgical History Date Name Laterality Status Provider Name and Address Organization Details Recorded Time kidney excision completed Not Available [facility] 04/22/2022 04:40:56 [facility]ste[facility] completed [facility] 04/22/[facility] 04:40:56 Imaging Results None recorded. Procedure Notes None recorded. Medical Equipment None Reported. Allergies Allergen ID Allergen Name Allergen Category Reaction Reaction Severity Criticality Documentation Date Start Date Code Code System Note Provider Name and Address Organization Details Recorded Time 6873 Wellbutri n medicatio n other severe Not available 04/22/2022 [address]206 RxNorm throa t closi ng Not Available [facility] 3 04:51:44 Medications Name Sig Start Date Stop Date Status Note LastModified by Organization Details LastModified Time cyclobenz aprine 10 mg tablet 01/03 completed Not Available Not Available Not Available prednison e 10 mg tablet active Not Available Not Available Not Available ammonium lactate 12 % lotion Apply 1 applicat ion every day by topical route as needed. active Not Available Not Available No t Available azithromy rehana 250 mg tablet 01/03 completed Not Available Not Available Not Available hydrocodo ne 5 mg-acetam inophen 325 mg tablet 01/03 completed Not Available Not Available Not Available ondansetr on HCl 8 mg tablet TAKE 1 TABLET BY MOUTH EVERY 8 HOURS NEEDED FOR NAUSEA OR VOMITING 03/10 completed Not Available Not Available Not Available prednison e 20 mg tablet TAKE 2 TABLETS BY MOUTH DAILY FOR 5 DAYS 03/10 completed Not Available Not Available Not Available propranol ol ER 60 mg capsule,2 4 hr,extend ed release TAKE 1 CAPSULE DAILY IN THE MORNING active Not Available Not Available No t Available sumatript an 50 mg tablet active Not Available Not Available Not Available potassium chloride ER 10 mEq tablet,ex tended release 01/03 completed Not Available Not Available Not Available ciproflox acin 250 mg tablet 01/03 completed Not Available Not Available Not Available folic acid 400 mcg tablet Take 1 tablet every day by oral route in the morning for 90 days. active Not Available Not Available No t Available hydrocodo ne 10 mg-acetam inophen 325 mg tablet 01/03 completed Not Available Not Available Not Available tramadol 50 mg tablet TAKE 1 TABLET BY MOUTH EVERY 6 HOURS NEEDED FOR PAIN active Not Available Not Available No t Available acetamino phen 500 mg tablet TAKE 2 TABLETS BY MOUTH THREE TIMES DAILY NEEDED FOR PAIN active Not Available Not Available No t Available triamcino lone acetonide 0.1 % topical cream APPLY TO THE AFFECTED AREA UP TO TWICE A DAY NEEDED active Not Available Not Available No t Available butalbita l-acetami nophen-ca ffeine 50 mg-325 mg-40 mg tablet 01/03 completed Not Available Not Available Not Available Zofran 4 mg tablet Take 1 tablet twice a day by oral route as needed for 30 days. 12/03 completed Not Available Not Available Not Available propranol ol 10 mg tablet Take one tablet by mouth three times a day as needed active Not Available Not Available No t Available alprazola m 0.25 mg tablet TAKE 1 TABLET BY MOUTH THREE TIMES DAILY active Not Available Not Available No t Available famotidin e 20 mg tablet Take 1 tablet twice a day by oral route before meals for 30 days. 08/30 completed Not Available Not Available Not Available dexametha sone 1 mg tablet TAKE 1 TABLET BY MOUTH AT BEDTIME FOR 1 DAY NEEDED active Not Available Not Available No t Available meclizine 25 mg tablet TK 1 T PO BID PRF DIZZINES S 09/14 completed Not Available Not Available Not Available cyanocoba nay (vit B-12) 1,000 mcg/mL injection solution active Not Available Not Available Not Available triamcino lone acetonide 0.1 % topical ointment 01/03 completed Not Available Not Available Not Available lisinopri l 10 mg tablet 01/03 completed Not Available Not Available Not Available prednison e 50 mg tablet 01/03 completed Not Available Not Available Not Available methimazo le 5 mg tablet active Not Available Not Available Not Available monteluka st 10 mg tablet 01/03 completed Not Available Not Available Not Available cyanocoba nay (vit B-12) 1,000 mcg sublingua l tablet Place 1 tablet every day by sublingu al route in the morning for 90 days. 11/28 completed no longer taking, caused stomach upset Not Available Not Available Not Available furosemid e 20 mg tablet 01/03 completed Not Available Not Available Not Available ergocalci ferol (vitamin D2) 1,250 mcg (50,000 unit) capsule TAKE 1 CAPSULE EVERY WEEK active Not Available Not Available No t Available Transderm -Scop 1 mg over 3 days transderm al patch 01/03 completed Not Available Not Available Not Available methimazo le 10 mg tablet Take one tablet by mouth twice daily with meals active Not Available Not Available No t Available dicyclomi ne 10 mg capsule TAKE 1 CAPSULE BY MOUTH THREE TIMES DAILY 12/03 completed Not Available Not Available Not Available oxycodone 5 mg tablet TAKE 1 TABLET BY MOUTH EVERY 4 HOURS NEEDED FOR PAIN active Not Available Not Available No t Available nitrofura ntoin monohydra te/macroc rystals 100 mg capsule TAKE 1 CAPSULE BY MOUTH EVERY 12 HOURS WITH A MEAL AND/OR FOOD FOR 3 DAYS 12/03 completed Not Available Not Available Not Available duloxetin e 30 mg capsule,d elayed release TAKE 1 CAPSULE BY MOUTH DAILY 03/10 completed Not Available Not Available Not Available folic acid active Not Available Not Available Not Available ProAir HFA 90 mcg/actua tion aerosol inhaler 01/03 completed Not Available Not Available Not Available BD Insulin Syringe Ultra-Fin e 1 mL 31 gauge x /16 active Not Available Not Available Not Available Fluvirin 5390-9878 45 mcg (15 mcg x 3)/0.5 mL intramusc ular suspensio n 01/03 completed Not Available Not Available Not Available Afluria Qd 2018- (36 mos up)(PF)60 mcg (15 mcg x4)/0.5 mL IM syringe ADM 0.5ML IM UTD 01/03 completed Not Available Not Available Not Available Afluria Qd 2019- (36 mos up)(PF)60 mcg (15 mcg x4)/0.5 mL IM syringe ADM 0.5ML IM UTD 12/04 completed Not Available Not Available Not Available BinaxNOW COVID-19 Ag Self Test kit TEST DIRECTED TODAY 03/10 completed Not Available Not Available Not Available Vitals Date Recorded Body mass index (BMI) Body height Body weight Provider Name and Address Organization Details Last Updated DateTime 11/17/2021 47.1 kg/m2 172.72 cm 204725.63 g Not Available [facility] 04/22/2022 04:42:20 Date Recorded Body mass index (BMI) Body height Oxygen saturation Oxygen saturation in Arterial blood by Pulse oximetry Heart rate Body temperature Body weight Systolic blood pressure Diastolic blood pressure Provider Name and Address Organization Details Last Updated DateTime 2 47.8 kg/m2 172.72 cm 99 % 99 % 67 /min 97.8 [degF] 135724. 16 g 130 mm[Hg] 85 mm[Hg] Not Available [facility] 3 04:42:19 Date Recorded Body mass index (BMI) Body height Oxygen saturation Oxygen saturation in Arterial blood by Pulse oximetry Heart rate Body temperature Body weight Systolic blood pressure Diastolic blood pressure Provider Name and Address Organization Details Last Updated DateTime 3 48.8 kg/m2 172.72 cm 98 % 98 % 61 /min 97.6 [degF] 968120. 15 g 125 mm[Hg] 85 mm[Hg] Not Available [facility] 3 04:42:19 Date Recorded Body height Body mass index (BMI) Body weight Body temperature Heart rate Respiratory rate Systolic blood pressure Diastolic blood pressure Provider Name and Address Organization Details Last Updated DateTime 3 172.72 cm 48.9 kg/m2 972851. 95 g 97.6 [degF] 81 /min 16 /min 134 mm[Hg] 86 mm[Hg] Abby Scott RN [place] - [facility] [place] [facility] 3 12:07:01 Social History Question Answer Notes LastModified by Organizat ion Details LastModified Time Tobacco Smoking Status Former Smoker NACHO [place] - [facility] 11/03/2022 11:54:07 What Is Your Level Of Alcohol Consumption? Occasional [id number] Information not available 04/22/2022 What Is Your Level Of Caffeine Consumption? Moderate [id number] Information not available 04/22/2022 How Much Tobacco Do You Chew? None [id number] Information not available 04/22/2022 In The 14 Days Before Symptom Onset, Have You Had Close Contact With A Laboratory-confir med COVID-19 While That Case Was Ill? No Information not available 11/03/2022 In The 14 Days Before Symptom Onset, Have You Had Close Contact With A Person Who Is Under Investigation For COVID-19 While That Person Was Ill? No Information not available 11/03/2022 What Type Of Diet Are You Following? REGULAR [id number] Information not available 04/22/2022 Which Illicit Or Recreational Drugs Have You Used? None Information not available 11/03/2022 Do You Or Have You Ever Used E-cigarettes Or Vape? Former User Of Electronic Cigarettes Information not available 11/03/2022 What Is Your Occupation? [employer] Information not available 11/03/2022 What Was The Date Of Your Most Recent Tobacco Screening? 11/17/2021 Information not available 11/03/2022 Have You Ever Been Counseled For Unhealthy Alcohol Use? No Information not available 11/03/2022 What Is Your Relationship Status? [id number] Information not available 04/22/2022 Do You Or Have You Ever Used Smokeless Tobacco? Never Used Smokeless Tobacco [id number] Information not available 04/22/2022 Do You Use Any Illicit Or Recreational Drugs? No Information not available 11/03/2022 Has Tobacco Cessation Counseling Been Provided? No Information not available 11/03/2022 Have You Recently Traveled Abroad? No Information not available 11/03/2022 Do You Have Any Dietary Restrictions? No Information not available 11/03/2022 Do You Or Have You Ever Used Any Other Forms Of Tobacco Or Nicotine? No Information not available 11/03/2022 Sex: Female Functional Status None recorded. Mental Status None recorded. Family History Relationship Description Onset Age of this Age Resolved Age Notes LastModified by Organization Details LastModified Time Paternal Grandfather Malignant tumor of colon Not available 11/03 11:54:05 Mother Heart disease [id number] Not available 04/22/2022 04:40:58 Mother Malignant tumor of colon Not available 11/03 11:54:05 Mother Diverticulit is Not available 11/03 11:54:05 Mother Family history of stroke Not available 11/03 11:54:05 Mother Arthritis Not availa ble 11/03/2022 11:54:05 Mother Family history of malignant neoplasm Not available 11/03 11:54:05 Mother Blood coagulation disorder Not available 11/03 11:54:05 Father Heart disease [id number] Not available 04/22/2022 04:40:58 Son Malignant tumor of head and neck Not available 11/03 11:54:05 Brother Malignant tumor of breast Not available 11/03 11:54:05 Sister Malignant neoplasm of uterus Not available 11/03 11:54:05 Maternal Grandmother Diabetes mellitus [id number] Not available 04/22/2022 04:40:59 Maternal Grandmother Arthritis Not available 0 11/03/2022 11:54:05 Maternal Aunt Diabetes mellitus [id number] Not available 04/22/2022 04:40:59 Maternal Uncle Diabetes mellitus [id number] Not available 04/22/2022 04:40:59 Medical History Condition Response BLINDNESS N RHEUMATIC FEVER N MRSA N INFECTIOUS DISEASE N LUNG DISEASE/DISORDER N HEART ARRHYTHMIA N INSOMNIA N COPD N RADIATION / CHEMOTHERAPY N HIGH CHOLESTEROL / HYPERLIPIDEMIA Y HYPERTHYROIDISM Y EYE PROBLEMS Y BLOOD DISEASES Y NEUROLOGICAL PROBLEMS N SURGERY N EDEMA N HYPOTHYROIDISM Y DEPRESSION (INCLUDING POST ) N BACK / NECK PROBLEMS Y HAVE YOU BEEN HOSPITALIZED OR SEEN IN [facility] IN THE PAST YEAR ? N STROKE/TIA N THYROID DISEASE Y BENIGN PROSTATIC HYPERPLASIA N OBESITY Y EXCESSIVE PERSPIRATION N GERD/NAUSEA N ANEURYSM N OSTEOPOROSIS N ARTHRITIS Y USE OF BLOOD THINNERS N SKIN PROBLEMS Y DIABETES, TYPE N PARATHYROID DISEASE N BLOOD CLOTS N GOUT Y ALZHEIMER'S DISEASE N HERPES N RETINOPATHY N HEADACHES/MIGRAINES N GI PROBLEMS Y DIZZINESS N HEART DISEASE/HEART PROBLEMS N AIDS/HIV N KIDNEY DISEASE Y LIVER DISEASE N HYPERTENSION N CANCER: SPECIFY N BLOOD TRANSFUSION N ANEMIA/BLOOD DISORDER N ATRIAL FIBRILLATION N AUTOIMMUNE DISEASE Y TUBERCULOSIS N GLAUCOMA N Gynecological HistoryNo gynecological history recorded. Obstetrics History GPAL:G 0 P 0 0 0 0 Past Encounters Encounter ID Performer Location Encounter Start Date Encounter Closed Date Diagnosis/Indication Diagnosis SNOMED-CT Code Diagnosis ICD10 Code Diagnosis Note [id number] [facility] [address] [place] [address] 05/31/2020 00:00:00 05/31/2020 15:45:51 [id number] [facility] [address] [place] [address] 08/30/2020 00:00:00 08/30/2020 18:41:06 [id number] [facility] [address] [place] [address] 12/03/2020 00:00:00 12/03/2020 16:45:07 [id number] [facility] [address] [place] [address] 03/11/2021 00:00:00 03/11/2021 15:11:11 [id number] [facility] [address] [place] [address] 07/22/2021 00:00:00 07/22/2021 12:57:23 [id number] _ATHENA_M IGRATION_ DEFAULT_1 _1 , 11/17/2021 00:00:00 11/17/2021 15:39:53 [id number] [facility] [address] [place] [address] 11/28/2021 00:00:00 11/28/2021 13:24:11 [id number] [facility] [address] [place] [address] 03/10/2022 00:00:00 03/10/2022 16:27:52 [id number] Kym Topete MD [facility] [place] [address] [place] [address] 11/03/2022 11:50:10 11/03/2022 13:51:08 Christian thyroiditis 58124707 E06.3 Patient taking methimazol e once a week- TPO elevated consistent with hashimotos thyroiditi s. Advised patient to stop methimazol e and focus on diet low in refined sugars/low in processed foods- AIP at least 70% of time and regular diet 30% of time to see if she has improvemen t in energy, weight and inflammati on. Recommende d a thyroid supplement similiar to actalin by Dr. Jaiden Fraire that contains, iodine, magnesium, manganese, carnitine and other elements to help maintain endogenous thyroid function and help to reduce swelling to take in meantime to help reduce time frame to burn out and to help with fatigue, hair thinning etc. Vitamin D deficiency 347 [address]4819 E55.9 Continue on vitamin D 50 once weekly for bone and immune health. Vitamin B1 2 deficiency (non anemic) 84701891 E53.8 Continue on B12 injections weekly. Spent up to 25 minutes preparing to see the patient (eg, review of tests), obtaining and/or reviewing separately obtained history, performing a medically appropriat e examinatio n and evaluation , counseling and educating the patient, ordering medication s, tests, along with documentin g clinical informatio n in the electronic health record, independen tly interpreti ng results and communicat ing results to the patient. Patient can be followed by PCP - she/he is aware of my resignatio n and last day of December 04. If needed his/her PCP can refer patient to another endocrinol ogist in the area. All questions /concerns answered and refills necessary at visit today. Health Concerns Section Related Observation LastModified by Organization Detai ls LastModified Time None Recorded Concern Status LastModified by Organization Details LastModified Time None Recorded Advance Directives Directive None Recorded Payers Encounter Date Sequence Insurance Name Policy Number Policy Mazariegos Covered Member ID Mazariegos Member ID Guarantor Name 11/03/2022 1 [facility]: (PPO) [id number] Carlos Tsai [id number] Sharee Tsai Notes Date Note Type Note Provider Name and Address Organization Details Recorded Time 11/03/2022 text/html 62 yo female com es in for follow up in management of autoimmune thyroiditis/hypert hyroidism along with Vit D/B12 def. last seen in February at that time we continued low dose methimazole 5 mg weekly along with vitamin D 50 once weekly and B12 injections weekly. She is taking the methimazole on Wednesday only. She is taking vitamin D and B12 injections once weekly. She takes the folate gummies. If she misses her medications she will get a headache and feel off. She feels bad a few days afterwards. She may get a few headaches a month but otherwise no where near as often and severe in the past. She otherwise is doing well- no palpitations or anxiety- she has gained 11 pounds in the past year. labs from 10/14/22:TSH of 3.08 uIU/mlFT4 of 1.2 ng/dLFt3 of 3.0 pg/mLB12/folate 440/5.2 lowTPO 58 IU/mlvit D 68 ng/mLCr 1.15 mg/dL with GFR 54 ml/minglucose 86 mg/dlLFT normal Kym Topete MD [address] [facility], [facility] [address], [place], [address], [place] [facility] 11/03/2022 13:27:17 OBGyn Episode No OBEpisode recorded.
--- OUTSIDE RECORDS SUMMARY | 2024-05-01 20:07 | XMS_ITS | CONTINUITY OF CARE DOCUMENT ---
Author Name sabina muhammad Address Unknown Organization [facility] Address [address] [facility] [address] [place] [address] Phone [phone] Care Team Providers Care Harness Puller Name Role Phone Nik CAMPBELL, Milton Unavailable [phone] MARY KAMINSKI MD Unavailable [phone] YODIT BRITTON MD Unavailable PROBLEMS Condition Status Date Provider Notes Obesity active Sandip Ahmedzai Hyperlipidemia active Sandip Ahmedzai Hyperthyroidism active Sandip Ahmedzai Vitamin D deficiency active Sandip Ahmedzai Palpitations active Sandip Ahmedzai Christian's thyroiditis active Milton Zaragoza MD Essential hypertension--echo ef 60%, 03/2021 active 20 15/04/00 Sandip Ahmedzai ENCOUNTERS Date Type Provider Location Encounter Diag nosis - In-person encounter Office Visit Milton Zaragoza MD [facility] Essential hypertension--echo ef 60%, 03/2021 - In-person encounter Office Visit Milton Zaragoza MD [facility] Christian's thyroiditisEssential hypertension--echo ef 60%, 03/2021 VITAL SIGNS Date Observation Value Provider Body Mass Index (Ratio) 49.49 kg/m2 Manjeet Zaragoza MD blood pressure, cuff size large Antonia Law blood pressure, diastolic 60 mm[Hg] Antonia abbott [place] blood pressure, systolic 130 mm[Hg] Jay landa Law oxygen saturation, oximetry 97 % Tati Law pulse rate 67 /min Tati Bradshaw kya respiratory rate E&M 18 /min Christina adrian Law weight E&M 316 [lb_av] Tati Bradshaw kya height E&M 67 [in_i] Tati Arturban kya Body Mass Index (Ratio) 49.33 kg/m2 Manjeet Zaragoza MD blood pressure, diastolic 90 mm[Hg] Rona nkLogic blood pressure, systolic 120 mm[Hg] Mellissa kLogic blood pressure, diastolic 90 mm[Hg] Sa ra Slade blood pressure, systolic 120 mm[Hg] Itzel a Slade oxygen saturation, oximetry 97 % Ana Slade respiratory rate E&M 18 /min Ana Si ms pulse rate 65 /min Ana Slade blood pressure, cuff size large Sa ra Slade weight E&M 315 [lb_av] Ana Slade height E&M 67 [in_i] Ana Slade ALLERGIES Allergy Name Onset Date Reaction Criticality Status WELLBUTRIN High Criticality active HISTORY OF MEDICATION USE Medication Status Instructions Dates Provider Indications Com ments BD Insulin Syringe Ultra-Fine 1 mL 31 gauge x 5/16 syringe active Sandip Ahmedzai nitrofurantoin monohyd/m-cryst 100 mg capsule completed - 1 Sandip Ahmedzai dicyclomine 10 mg capsule completed - 1 Sandip Starmedzai cyanocobalamin (vitamin B-12) 1,000 mcg/mL solution active Sandip Starmedzai methimazole 5 mg tablet active Sandip Starmedzai alprazolam 0.25 mg tablet completed TAKE 1 TABLET BY MOUTH THREE TIMES DAILY - 1 Sandipthiago Lutzzai folic acid 400 mcg tablet completed - 1 Sandip Lutzzai ergocalciferol (vitamin D2) 1,250 mcg (50,000 unit) capsule active Sandip Lutzzai propranolol 60 mg capsule,extended release 24 hr active Sandip Starmedzai SOCIAL HISTORY Date Observation Value Provider social history E&M S moking History: P atient has never smoked. Sandip Ahmedzai smoking status Never smoker Tati Artur and social history reviewed E&M revi ewed - no changes required Sandip Ahmedzai social history reviewed E&M revi ewed - no changes required Milton Zaragoza MD INSURANCE PROVIDERS Payer name Policy type / Coverage type [place] red green party ID [facility] [id number] 1 ADVANCE DIRECTIVES Name Date DISCUSSED - NO DECISION MADE TREATMENT PLAN Date Name Performer [id number],S, Sandip Ahmedza i [id number],S, Sandip Ahmedza i [id number],S, Sandip Ahmedza i [id number],S, Sandip Ahmedza i [id number],S, Sandip Ahmedza i [id number],S, Sandip Ahmedza i [id number],S, Sandip Ahmedza i [id number],S, Sandip Ahmedza i [id number],S, Sandip Ahmedza i [id number],S, Sandip Ahmedza i Cardiology Sandip Ahmedzai Cardiology Sandip Ahmedzai Cardiology Sandip Ahmedzai Cardiology Sandip Ahmedzai Cardiology Sandip Ahmedmarbellai Cardiology Sandip Gravesmedzai Cardiology Sandip Gravesmedzai Cardiology Sandip Celestin Cardiology Sandip Celestin Cardiology Sandip Celestin Date Name Complete Echo Monitor - Telemetry (Mobile Cardiac) HISTORY OF PROCEDURES Procedure Date Procedure Name Provider Procedure Notes S tatus EKG Milton Zaragoza MD completed
--- NOTE | 2024-05-01 20:21 | ED_ITS ---
HPI - Extremity Problem General Chief complaint: Extremity Problem,Nontraumatic Stated complaint: GOUT Time Seen by Provider: 05/01/24 19:51 History of Present Illness HPI Narrative: 63-year-old female with a past medical history including osteoarthritis and gouty arthritis. She presents to the emergency department for evaluation of bilateral knee pain. Patient has been doing with gout in her right foot intermittently for last several weeks. She was recently started on allopurinol by her PCP this week. She took her 1st dose of prednisone and allopurinol today. There is that she was having some bilateral knee pain was concerned that this could be gout. She normally gets around by walking and with a scooter that her PCP prescribed. She does have stairs in her household. Denies any falls or injuries. No fever chills. No leg swelling, neuropathy, weakness. Patient was otherwise in her normal state of health. Related Data Home Medications ?Medication ?Instructions ?Recorded ?Confirmed ?Last Taken ?Type mecobalamin (vitamin B12) 10,000 10,000 mcg subcut .once weekly 06/11/21 04/21/24 Unknown History mcg solution for injection insulin syringe-needle U-100 1 mL 08/06/21 04/21/24 Unknown History 31 gauge x 5/16 (BD Insulin Syringe Ultra-Fine) propranolol 60 mg tablet 60 mg PO WEEKLY 02/02/24 04/21/24 Unknown History Allergies Allergy/AdvReac Type Severity Reaction Status Date / Time amoxicillin Allergy Unknown Rash Verified 05/01/24 19:48 bupropion AdvReac Severe choking Verified 05/01/24 19:48 Review of Systems Review of Systems: As [facility] Past Medical History Medical History Migraine Gout attack Toe pain, right Autoimmune thyroiditis Christian's disease Graves disease Inflammatory arthritis IBS (irritable bowel syndrome) Congenital hypoplasia of right kidney Vitamin B12 deficiency Vitamin D deficiency HLD (hyperlipidemia) Hypothyroidism CKD (chronic kidney disease) Surgical History Surgical History H/O: hysterectomy History of nephrectomy Family History Family History Mother Diverticulitis Carcinoma of colon Other Cerebrovascular accident Diabetes mellitus Family history of arthritis Family history of heart disease in male family member before age 55 Family history of malignant neoplasm Family history of malignant neoplasm of breast in first degree relative Family history of malignant neoplasm of uterus Social History Social History Smoking status: Former smoker Second hand tobacco smoke exposure: No Smoking end date: 02/23/12 Alcohol intake: never Substance use: never Substance use type: does not use Do You Feel Safe in your Home?: Yes Lack of Transportation: No Lack of Food: Never True Current Housing: Decline to Answer Concerned About Future Housing: Decline to Answer Difficulty Paying Gas/Electric Bills: Decline to Answer Difficulty Paying for Meds: Decline to Answer Currently Unemployed: Decline to Answer Education: Decline to Answer Difficulty w/ Childcare or Family Care: Decline to Answer Living arrangements: with family Occupation/Education: retired Gender identity (if verbalized by the patient): Female Spiritual care concerns: No Agree to blood products: Yes Exam Narrative: GENERAL: Morbidly obese but not any acute distress, answering all questions appropriately. HEAD: [Normocephalic, atraumatic.] EYES: [PERRLA and EOMI.] ENT: Nares clear, no rhinorrhea or epistaxis. Mucous membranes moist. NECK: Supple. CHEST: [Clear to auscultation. No respiratory distress.] HEART: [Regular rate and rhythm]. No murmur heard. [Normal peripheral pulses.] ABDOMEN: [Soft, nondistended], [nontender], [No rigidity or guarding] EXTREMITIES: Large bilateral lower extremities without any edema, tenderness with manipulation and palpation of the knees bilaterally with no appreciable crepitus. No restricted range of motion with passive ranging. Plantar/dorsifle xion 5/5 at the ankle. SKIN: Warm, dry, no rash. NEURO: [No focal deficits]. Alert and oriented [x3.] PSYCH: [Normal mood and affect.] Course Vital Signs Vital signs: Vital Signs Temperature 37.7 C H 05/01/24 19:37 Pulse Rate 103 H 05/01/24 19:37 Respiratory Rate 20 05/01/24 19:37 Blood Pressure 151/77 H 05/01/24 19:37 Pulse Oximetry 100 05/01/24 19:37 Oxygen Delivery Room Air 05/01/24 19:37 Temperature 37.7 C H 05/01/24 19:37 Pulse Rate 103 H 05/01/24 19:37 Respiratory Rate 20 05/01/24 19:37 Blood Pressure 151/77 H 05/01/24 19:37 Pulse Oximetry 100 05/01/24 19:37 Oxygen Delivery Room Air 05/01/24 19:37 MDM - Extremity (Nontraumatic) MDM Narrative Medical decision making narrative: 63-year-old female with history of morbid obesity, osteoarthritis, gouty arthritis. She presents to the emergency department today for evaluation of bilateral knee pain. She was recently diagnosed with gout these last few weeks and been dealing with a gout flare in her right big toe and treated with steroids and allopurinol which her PCP started. She took her 1st dose yesterday and started prednisone 50 mg daily yesterday. Denies any falls or trauma. She has no appreciable swelling but has large bilateral lower extremities secondary to her morbid obesity. Range of motion is full, able ambulate albeit with some pain. No neurological deficits or concerns. Gets around with ambulation and a scooter for assistance. He has chronic low back pain as well that limits her walking and her PCP evaluated her for potential wheelchair for this. Overall suspicion for acute gouty arthritis in the knees is low without any overlying skin changes or swelling, redness. Most likely patient has degenerative joint disease, osteoarthritis. Less likely acute osseous process such as fracture or dislocation. She does not appear uncomfortable and states that Toradol usually helps her pain and she is comfortable taking Toradol after discussions with her infrastructure architect. X-rays of the bilateral knees were obtained and she was provided Toradol for analgesia and re-evaluated. X-rays of the bilateral knees were independently reviewed and also interpreted by radiology. There appears to be no acute osseous process, fractures or dislocation. She does have significant tricompartmental osteophytosis and some chondrocalcinosis likely causing her acute on chronic pain. Patient was re- evaluated after Toradol with improvement in good analgesia itchy. She is safe and stable for discharge home at this time with regular PCP follow-up and encouraged to continue taking her allopurinol and prednisone for her gouty arthritis in her right leg into inquire with her PCP about next steps and treatment options. Discharge Plan Discharge Clinical Impression: Arthralgia of both knees, History of gout, Tricompartment osteoarthritis of knees, bilateral Patient Disposition: Home, Self-Care Condition: Stable Instructions: Antibiotic Form, Osteoarthritis (DC), Knee Pain (ED), Arthralgia (ED) Additional Instructions: Follow-up with your primary care provider regarding gout and knee pain. No evidence of gout or acute bony process in your knees aside from acute on chronic arthropathy/osteoarthritis. We will send you home with some Toradol as needed. Return with any new or worsening concerns. Patient Language: Romanian Prescriptions: New ketorolac 10 mg tablet 10 mg PO Q8H PRN (Reason: pain) 3 Days Qty: 9 0RF Rx Instructions: maximum total duration of 5 days from all oral, intranasal, or parenteral formulations No Action methylprednisolone [Medrol (Matt)] 4 mg tablets,dose pack See Rx Instructions PO .COMPLEX Qty: 21 0RF Rx Instructions: orally per package directions (DME) insulin syringe-needle U-100 [BD Insulin Syringe Ultra-Fine] 1 mL 31 gauge x 5/16 syringe MISCELLANEOUS mecobalamin (vitamin B12) 10,000 mcg recon soln 10,000 mcg subcut .once weekly icfdxmwzza-xwpigdgzezwxi-sdyp 50-300-40 mg capsule 1 cap PO Q8H PRN (Reason: headache) Qty: 20 0RF (DME) electric scooter See Rx Instructions .Route .MEDSUPPLY Qty: 1 0RF Rx Instructions: As directed daily allopurinol 100 mg tablet 50 mg PO DAILY Qty: 90 3RF propranolol 60 mg tablet 60 mg PO WEEKLY hydrocodone-acetaminophen 5-325 mg tablet 1 tablet PO Q6H PRN (Reason: pain) Qty: 5 0RF ondansetron 4 mg tablet,disintegrating 4 mg PO Q8H PRN (Reason: nausea and vomiting) Qty: 15 0RF cholecalciferol (vitamin D3) 1,250 mcg (50,000 unit) capsule 1,250 mcg PO WEEKLY Qty: 14 0RF prednisone 10 mg tablet 10 mg PO DIRECTED Qty: 30 0RF Rx Instructions: Take 5 tabs daily PO for 2 days, 4 tabs daily PO for 2 days, 3 tabs daily PO for 2 days, 2 tabs daily PO for 2 days, 1 tab daily PO for 2 days. Follow-up/Referrals: Shahnaz Posada MD [Primary Care Provider] - Time of Disposition: 21:23
[2024-05-01] MEDS: KETOROLAC 30 MG/ML VIAL (*BKC) IM (20:38)
[2024-05-01 21:55] VITALS: BP 149/85; PULSE 74; RESP 19; O2SAT 99
== END 2024-05-01 21:50 | disposition home or self-care (01) ==
PROVIDERS: Emergency Provider Student in an Organized Health Care Education/Training Program; PCP Family Medicine
DX: M17.0 Bilateral primary osteoarthritis of knee (principal); M10.9 Gout, unspecified; E06.3 Autoimmune thyroiditis; E53.8 Deficiency of other specified B group vitamins; E55.9 Vitamin D deficiency, unspecified; E78.5 Hyperlipidemia, unspecified; E66.01 Morbid (severe) obesity due to excess calories; Z68.42 Body mass index [BMI] 45.0-49.9, adult; N18.9 Chronic kidney disease, unspecified; K58.9 Irritable bowel syndrome, unspecified; Z87.891 Personal history of nicotine dependence; Z90.710 Acquired absence of both cervix and uterus; Z90.5 Acquired absence of kidney; Z79.4 Long term (current) use of insulin; Z79.899 Other long term (current) drug therapy; Z87.718 Personal history of other specified (corrected) congenital malformations of genitourinary system
CPT/HCPCS: 73562; 96372; 99284; J1885

== ENCOUNTER 2024-08-21 14:18 | Outpatient (CLI) | payer BC, SELFPAY ==
--- NOTE | ~2024-08-21 | US_ITS ---
EXAMINATION: US thyroid DATE: 08/21/2024 14:34 INDICATION: Nontoxic single thyroid nodule TECHNIQUE: Multiple ultrasound images of the thyroid were obtained. COMPARISON: 09/04/2018 FINDINGS: The right thyroid lobe measures 4.7 x 2.1 x 1.7 cm. The left thyroid lobe measures 4.2 x 1.8 x 1.9 c m. There is a 1 cm solid wider than tall isoechoic nodule with ill-defined margins and without echog enic foci (TI-RADS 3, mildly suspicious , FNA if >=2.5 cm, annual followup is >=1.5 cm) in the left t hyroid lobe. There is normal echotexture, echogenicity and vascular flow throughout the thyroid gland . IMPRESSION: 1. No significant interval change in a 1 cm TI RADS 3 left thyroid nodule which remains below size cr iteria for either biopsy or follow-up. Reviewed, dictated and finalized at location B. IMPRESSION: 1. No significant interval change in a 1 cm TI RADS 3 left thyroid nodule which remains below size criteria for either biopsy or follow-up.
== END 2024-08-21 14:19 | disposition home or self-care (01) ==
LOC: MICIMG 14:19
PROVIDERS: PCP Family Medicine; Visit Provider Internal Medicine Endocrinology, Diabetes & Metabolism
DX: E04.1 Nontoxic single thyroid nodule (principal)
CPT/HCPCS: 76536

== ENCOUNTER 2024-09-22 07:45 | Outpatient (CLI) | payer BC, SELFPAY ==
--- NOTE | ~2024-09-22 | DEXA_ITS ---
Bone Density Report Name: STEVEN PIZARRO Age: 64 Sex: Female Ethnicity: White Date of : 1960 Indication: osteopenia; parental hip fracture; height loss; inflammatory bowel disease; hysterectomy; Referring Provider: Muna Lantigua Study: Bone densitometry was performed. Exam Date: September 22, 2024 Accession number: [id number] Bone Density: Region BMD T-score Z-score Classification AP Spine(L1-L4) 0.976 -0.6 1.0 Normal Femoral Neck (Left) 0.647 -1.8 -0.4 Osteopenia Total Hip (Left) 0.946 0.0 1.2 Normal Femoral Neck (Right) 0.576 -2.5 -1.0 Osteoporosis Total Hip (Right) 0.897 -0.4 0.8 Normal Total Hip Mean 0.922 -0.2 1.0 Normal World Health Organization criteria for BMD impression classify patients as: Normal (T-score at or above -1.0), Osteopenia (T-score between -1.0 and -2.5), or Osteoporosis (T-score at or below -2.5). 10-year Fracture Risk: FRAX not reported because: Some T-score for Spine Total or Hip Total or Femoral Neck at or below -2.5 Previous Exams: -- Region Exam Age BMD T-score BMD Change BMD Change Date g/cm2 vs Baseline vs Previous -- AP Spine (L1-L4) 09/22/2024 64 0.976 -0.6 7.7%* 4.8%* 01/27/2022 61 0.931 -1.1 2.8%* 2.8%* 02/06/2009 48 0.906 -1.3 Total Hip(Left) 09/22/2024 64 0.946 0.0 -3.4%* 1.4% 01/27/2022 61 0.933 -0.1 -4.7%* -4.7%* 02/06/2009 48 0.979 0.3 Total Hip(Right) 09/22/2024 64 0.897 -0.4 -3.1%* 3.7%* 01/27/2022 61 0.865 -0.6 -6.5%* -6.5%* 02/06/2009 48 0.926 -0.1 -- *Denotes significance at 95% confidence level, LSC for AP Spine = 0.022 g/cm2, LSC for Total Hip = 0.027 g/cm2 Clinical Information Provided by Patient: Parent has had a hip fracture Has used the following medications: HRT (i.e. estrogen/hormone therapy), Vitamin D Has the following medical conditions: Inflammatory bowel diseases, Hysterectomy Patient maximum height was 68 Menopause Age: 26 No regular weight bearing exercise Onset of menses at age 12 Number of children 2 Impression: The patient has osteoporosis, based on the Right Femoral Neck T-score. The patient has risk factors, including: parental hip fracture. No significant bone loss was observed. Discussion: INCREASED RISK OF FRACTURE. BONE DENSITY IS UNDESIRABLY LOW AT ONE OR MORE SKELETAL SITES, CONSISTENT WITH POSTMENOPAUSAL OSTEOPOROSIS. This patient's lowest T-score meets the World Health Organization's (WHO) criteria for osteoporosis at one or more sites (T-score -2.5 or below). In untreated patients, the risk of osteoporotic fracture increases approximately two-fold for each 1.0 SD decrease in T-score. Low bone density is not the only risk factor for fracture; also consider factors such as patient's age, frailty or poor health, risk of falling, risk of injury, previous osteoporotic fracture, family history of osteoporosis, cigarette smoking, low body weight, etc. Not everyone with low bone mineral density has osteoporosis; osteomalacia and other metabolic bone disorders should also be considered. Patients who have osteoporosis should be evaluated for specific diseases and conditions (secondary causes) that may cause or contribute to bone loss. The [place] Association of Clinical Endocrinologists (AACE) and National Osteoporosis Foundation (NOF) recommend pharmacologic intervention for all postmenopausal women whose T-score is in this range. The patient should follow a healthful lifestyle (good nutrition with adequate calcium and vitamin D, and appropriate weight-bearing exercise). Follow-Up: Consider a repeat BMD and Vertebral Fracture Assessment (VFA) exam in 2 years or sooner if medically necessary, to reassess this patient's status. Reported by: TACO on 09/22/2024 8:20:00 AM. Reviewed, dictated and finalized at location A.
== END 2024-09-22 07:46 | disposition home or self-care (01) ==
LOC: MICIMG 07:46
PROVIDERS: PCP Family Medicine; Visit Provider Internal Medicine Endocrinology, Diabetes & Metabolism
DX: M85.80 Other specified disorders of bone density and structure, unspecified site (principal); M85.852 Other specified disorders of bone density and structure, left thigh; M81.0 Age-related osteoporosis without current pathological fracture; Z78.0 Asymptomatic menopausal state
CPT/HCPCS: 77080